=== PATIENT | female | born 1955 | race Caucasian/White ===

== ENCOUNTER 2016-12-27 17:20 | Observation (INO) | payer MEDICARE ==
[~2016-12-27 17:20] MED LIST: BAYER CHEWABLE81 MG PO; CYMBALTA30 MG PO; LOPRESSOR25 MG PO; PLAVIX75 MG PO; PRAVACHOL40 MG PO; TYLENOL325 MG PO
[2016-12-27 17:51] LABS: BASOPHILS 0.1 % (0-2); EOSINOPHILS 1.9 % (0-7); HEMATOCRIT 45.9 % (36.0-48.0); HEMOGLOBIN 15.3 g/dL (12-16); IMMATURE GRANULOCYTES 0.3 % (0-5); LYMPHOCYTES 42.3 % (15-50); MCH 29.9 pg (26.0-34.0); MCHC 33.3 g/dL (31.0-37.0); MCV 89.8 fL (80.0-100.0); MEAN PLATELET VOLUME 9.2 fL (7.4-10.4); MONOCYTES 6.7 % (2-11); NEUTROPHILS 48.7 % (40-80); PLATELET COUNT 247 10x3/uL (130-400); RBC 5.11 10x6/uL (4.00-5.40); RDW 15.4 % (11.5-14.5); WBC 7.2 10x3/uL (4.8-10.8)
[2016-12-27 17:59] LABS: APTT 31.6 SECONDS (22.8-39.4); INR 1.07 (0.85-1.17); PROTIME 13.8 SECONDS (11.6-15.0)
[2016-12-27 18:07] LABS: ALKALINE PHOSPHATASE 107 U/L (46-116); ALT (SGPT) 11 U/L (10-68); BILIRUBIN - TOTAL 0.16 mg/dL (0.2-1.3); CALC OSMOLALITY 279 mosm/kg (275-300); CALCIUM 9.2 mg/dL (8.5-10.1); CARBON DIOXIDE 22.8 mmol/L (21.0-32.0); CHLORIDE - SERUM 105 mmol/L (98-107); CREATININE - SERUM 0.7 mg/dL (0.6-1.3); GLUCOSE 92 mg/dL (74-106); POTASSIUM - SERUM 3.9 mmol/L (3.5-5.1); PROTEIN - SERUM 8.1 g/dL (6.4-8.2); SODIUM 140 mmol/L (136-145); UREA NITROGEN 16 mg/dL (7-18); eGFR NON AFRICAN AMERICAN > 90 mL/min (90-120)
--- NOTE | 2016-12-27 21:00 | NUR ---
RECEIVED PT TO FLOOR FROM ER VIA WHEELCHAIR. VITALS SIGNS STABLE. NEURO CHECKS WNL. NO DEFICITS. TELEMETRY NSR. CALLED REPORT TO DR. NIETO. REVIEWED HOME MEDS AND HISTORY. COMPLETE ASSESSMENT PER FLOW-SHEET. PT EATING SANDWICH. NO OTHER NEEDS. WILL CONTINUE TO MONITOR.
[2016-12-27] MEDS ORDERED: MILK OF MAGNESI30 ML PO (21:41)
[2016-12-27] MEDS ORDERED: BC POWDER (21:43)
[2016-12-27 23:48] VITALS: BP 119/61; BMI 19.8
[2016-12-28] VITALS: BP 88/52
[2016-12-28 04:00] VITALS: BP 123/65
[2016-12-28 04:38] LABS: BASOPHILS 0.3 % (0-2); EOSINOPHILS 3.5 % (0-7); HEMATOCRIT 38.7 % (36.0-48.0); HEMOGLOBIN 12.8 g/dL (12-16); IMMATURE GRANULOCYTES 0.3 % (0-5); LYMPHOCYTES 50.3 % (15-50); MCH 29.8 pg (26.0-34.0); MCHC 33.1 g/dL (31.0-37.0); MEAN PLATELET VOLUME 9.2 fL (7.4-10.4); MONOCYTES 7.8 % (2-11); NEUTROPHILS 37.8 % (40-80); PLATELET COUNT 215 10x3/uL (130-400); RDW 15.4 % (11.5-14.5)
[2016-12-28 04:48] LABS: INR 1.11 (0.85-1.17); PROTIME 14.2 SECONDS (11.6-15.0)
[2016-12-28 05:09] LABS: CALC OSMOLALITY 281 mosm/kg (275-300); CALCIUM 8.7 mg/dL (8.5-10.1); CHLORIDE - SERUM 104 mmol/L (98-107); CHOL - HDL RATIO 6.4 ratio (2.3-4.1); CHOLESTEROL, TOTAL 180 mg/dL (0-200); CREATININE - SERUM 0.7 mg/dL (0.6-1.3); GLUCOSE 90 mg/dL (74-106); HDL CHOLESTEROL 28 mg/dL (32-96); LDL CHOLESTEROL 118 mg/dL (0-100); LDL-HDL RATIO 4.2 ratio (1.5-3.5); POTASSIUM - SERUM 3.7 mmol/L (3.5-5.1); SODIUM 140 mmol/L (136-145); TRIGLYCERIDE 172 mg/dL (30-200); UREA NITROGEN 20 mg/dL (7-18); eGFR NON AFRICAN AMERICAN > 90 mL/min (90-120)
--- NOTE | 2016-12-28 07:43 | NUR ---
REPORT RECEIVED, ASSUMED CARE OF PT. RESTING IN BED, EASILY AROUSED. NO COMPLAINTS AT THIS TIME. R WRIST IV SALINE LOCKED, DRSG C/D/I. BED IN LOWEST POSITION, SIDE RAILS UP X 2, CALL LIGHT WITHIN REACH.
--- NOTE | 2016-12-28 09:08 | NUR ---
MRI CALLED TO PRE-MEDICATE PT. ATIVAN GIVEN ORDERED.
[2016-12-28 11:13] VITALS: BP 99/45
[2016-12-28 12:54] VITALS: BP 111/63
[2016-12-28 13:01] VITALS: BMI 19.7
[2016-12-28 16:34] VITALS: BP 126/64
--- NOTE | 2016-12-28 18:00 | NUR ---
REQUESTING TO SIGN AMA FORM. STATES, "I JUST WANT TO GO HOME." EXPLAINED TO RISKS AND BENEFITS TO PT AND IV TO RIGHT WRIST D/C WITH CATH TIP INTACT. NOTIFIED DR CHAPA AND DIRECTOR DECISION SUPPORT.
== END 2016-12-28 18:08 | disposition left against medical advice (07) ==
LOC: D.ER 17:20 → D.MS 17:54 → OBSVTIME 17:58 → D.MS 12-28 18:08
PROVIDERS: Emergency Medicine; ADMIT Family Medicine
DX: G45.9 Transient cerebral ischemic attack, unspecified (principal); E78.5 Hyperlipidemia, unspecified; I65.23 Occlusion and stenosis of bilateral carotid arteries; F17.200 Nicotine dependence, unspecified, uncomplicated

== ENCOUNTER 2017-06-23 20:16 | Emergency (ER) | payer MEDICARE ==
[~2017-06-23 20:16] MED LIST changes: +BC POWDER; +MILK OF MAGNESI30 ML PO
[2017-06-23 20:52] LABS: BASOPHILS 0.3 % (0-2); HEMATOCRIT 39.7 % (36.0-48.0); HEMOGLOBIN 13.3 g/dL (12-16); IMMATURE GRANULOCYTES 0.3 % (0-5); LYMPHOCYTES 32.7 % (15-50); MCH 29.6 pg (26.0-34.0); MCHC 33.5 g/dL (31.0-37.0); MCV 88.4 fL (80.0-100.0); MEAN PLATELET VOLUME 8.9 fL (7.4-10.4); MONOCYTES 7.5 % (2-11); NEUTROPHILS 57.2 % (40-80); PLATELET COUNT 255 10x3/uL (130-400); RBC 4.49 10x6/uL (4.00-5.40); RDW 16.2 % (11.5-14.5)
[2017-06-23 21:09] LABS: APTT 29.3 SECONDS (22.8-39.4); INR 1.07 (0.85-1.17); PROTIME 13.5 SECONDS (11.6-15.0)
[2017-06-23 21:10] LABS: D-DIMER-QUANTITATIVE 0.97 ug/mLFEU (0.20-0.54)
[2017-06-23 21:14] LABS: ALBUMIN 3.5 g/dL (3.4-5.0); ALKALINE PHOSPHATASE 77 U/L (46-116); ALT (SGPT) 6 U/L (10-68); BILIRUBIN - TOTAL 0.15 mg/dL (0.2-1.3); CALC OSMOLALITY 288 mosm/kg (275-300); CARBON DIOXIDE 22.9 mmol/L (21.0-32.0); CHLORIDE - SERUM 106 mmol/L (98-107); CREATININE - SERUM 0.6 mg/dL (0.6-1.3); GLUCOSE 95 mg/dL (74-106); POTASSIUM - SERUM 3.4 mmol/L (3.5-5.1); PROTEIN - SERUM 7.1 g/dL (6.4-8.2); SODIUM 144 mmol/L (136-145); UREA NITROGEN 18 mg/dL (7-18); eGFR NON AFRICAN AMERICAN > 90 mL/min (90-120)
[2017-06-23 21:27] LABS: AMYLASE - SERUM 26 U/L (25-115); CHOL - HDL RATIO 7.8 ratio (2.3-4.1); CHOLESTEROL, TOTAL 202 mg/dL (0-200); CKMB 0.2 U/L (0.0-3.6); CREATINE KINASE 28 UL (21-215); HDL CHOLESTEROL 26 mg/dL (32-96); LDL CHOLESTEROL 140 mg/dL (0-100); LDL-HDL RATIO 5.4 ratio (1.5-3.5); LIPASE 292 U/L (73-393); TRIGLYCERIDE 182 mg/dL (30-200)
[2017-06-23 21:28] LABS: TROPONIN-I < 0.017 ng/mL (0.000-0.060)
== END 2017-06-24 02:00 | disposition home or self-care (01) ==
LOC: D.ER 20:16
PROVIDERS: Family Medicine
DX: R07.9 Chest pain, unspecified (principal); I10 Essential (primary) hypertension

== ENCOUNTER 2017-08-08 16:00 | Emergency (ER) | payer MEDICARE ==
[2017-08-08 16:53] LABS: BASOPHILS 0.2 % (0-2); EOSINOPHILS 1.2 % (0-7); HEMATOCRIT 38.3 % (36.0-48.0); HEMOGLOBIN 12.7 g/dL (12-16); IMMATURE GRANULOCYTES 0.8 % (0-5); MCH 30.1 pg (26.0-34.0); MCHC 33.2 g/dL (31.0-37.0); MCV 90.8 fL (80.0-100.0); MEAN PLATELET VOLUME 8.7 fL (7.4-10.4); MONOCYTES 5.6 % (2-11); NEUTROPHILS 71.2 % (40-80); PLATELET COUNT 330 10x3/uL (130-400); RBC 4.22 10x6/uL (4.00-5.40); RDW 14.8 % (11.5-14.5); WBC 10.7 10x3/uL (4.8-10.8)
[2017-08-08 17:21] LABS: ALKALINE PHOSPHATASE 96 U/L (46-116); ALT (SGPT) 9 U/L (10-68); BILIRUBIN - TOTAL 0.17 mg/dL (0.2-1.3); CALC OSMOLALITY 278 mosm/kg (275-300); CALCIUM 9.5 mg/dL (8.5-10.1); CARBON DIOXIDE 24.3 mmol/L (21.0-32.0); CHLORIDE - SERUM 103 mmol/L (98-107); CREATININE - SERUM 0.6 mg/dL (0.6-1.3); GLUCOSE 86 mg/dL (74-106); PROTEIN - SERUM 7.6 g/dL (6.4-8.2); SODIUM 139 mmol/L (136-145); UREA NITROGEN 19 mg/dL (7-18); eGFR NON AFRICAN AMERICAN > 90 mL/min (90-120)
[2017-08-08 18:22] LABS: INR 1.12 (0.85-1.17)
[2017-08-08 18:35] LABS: CREATINE KINASE 31 UL (21-215); LIPASE 307 U/L (73-393); MAGNESIUM - SERUM 2.1 mg/dL (1.8-2.4); PRO BNP 149 pg/mL (0-125)
[2017-08-08 18:39] LABS: TROPONIN-I < 0.017 ng/mL (0.000-0.060)
[2017-08-08 20:32] LABS: APPEARANCE CLEAR (CLEAR); COLOR YELLOW (YELLOW)
[2017-08-08 20:33] LABS: BILIRUBIN NEGATIVE (NEGATIVE); GLUCOSE NEGATIVE (NEGATIVE); KETONE NEGATIVE (NEGATIVE); NITRITE NEGATIVE (NEGATIVE); PROTEIN NEGATIVE (NEGATIVE); UROBILINOGEN NORMAL (NORMAL)
[2017-08-08 20:34] LABS: EPITHELIAL CELLS OCC /hpf (0-5); RED CELLS - URINE 0-5 /hpf (0-5); WHITE CELLS - URINE 0-5 /hpf (0-5)
[2017-08-08 20:35] LABS: BACTERIA FEW /hpf (NONE SEEN)
== END 2017-08-08 21:13 | disposition home or self-care (01) ==
LOC: D.ER 16:00
PROVIDERS: Emergency Medicine; Nurse Practitioner Family
DX: J18.9 Pneumonia, unspecified organism (principal); R53.1 Weakness; K21.9 Gastro-esophageal reflux disease without esophagitis; I10 Essential (primary) hypertension; Z86.73 Personal history of transient ischemic attack (TIA), and cerebral infarction without residual deficits

== ENCOUNTER 2018-12-30 21:25 | Inpatient (IN) | payer MEDICARE ==
[~2018-12-30] VITALS: Ht 172.7 cm; Wt 59.4 kg
--- NOTE | ~2018-12-30 | HEMODYNAMI ---
PATIENT:DOMINGA CABAN MEDICAL RECORD: [id number] : 59 [facility] ADMISSION DATE: 12/30/18 Generatedon:12/31/201814:30 Patient name: DOMINGA CABAN Patient #: [id number] SSN: [id number] : 1955 Date of study: 12/31/2018 Page: Of Hemodynamic Procedure Report Patient Data Patient Demographics Procedure consent was obtained First Name: DOMINGA Gender: Female Last Name: ARSH : 1955 Middle Initial: NATALIE Age: 63 year(s) Patient #: [id number] Race: SSN: [id number] Additional ID: [id number] Contact details Address: [address] [place] [address] State: [place] City: [place] Zip code: [address] Past Medical History Allergies Allergen Reaction Date Comments Reported Other allergy 12/31/2018 see chart Admission Admission Data Admission Date: 12/30/2018 Admission Time: 22:58 Arrival Date: 12/31/2018 Arrival Time: 13:48 Admit Source: Other Insurance Payor: Medicare Room #: D.2115 [facility] #: [id number] Height (in.): 68.11 BSA: 1.72 (m2) Height (cm.): 173 BMI: 20.05 (kg/m2) Weight (lbs.): 132.28 Weight (kg.): 60 Lab Results Lab Result Date: 12/31/2018 Lab Result Time: 0:00 Biochemistry Name Units Result Min Max BUN mg/dl 13 --(--*-)-- 7 18 Creatinine mg/dl 0.5 -*(----)-- 0.6 1.3 eGFR ml/min 90 --(*---)-- 90 120 AM CBC Name Units Result Min Max Hemoglobin g/dl 13.1 -*(----)-- 13.5 17.5 Procedure Procedure Types Cath Procedure Diagnostic Procedure LHC LH w/Coronaries Sedation Charges Moderate Sedation up to 15 minutes Procedure Description Procedure Date Procedure Date: 12/31/2018 Procedure Start Time: 14:10 Procedure End Time: 14:28 Procedure Staff Name Function Stewart Zavala MD Performing Physician Bekah Garcia RT Monitor Irma Amaya RT Monitor Doris Bush RN Nurse Sandra Bean RT Scrub Indication Acute anterior wall ME Chest pain Procedure Data Cath Procedure Fluoroscopy Diagnostic fluoroscopy Total fluoroscopy Time: 2.5 time: 2.5 min min Diagnostic fluoroscopy Total fluoroscopy dose: 629 dose: 629 mGy mGy Contrast Material Contrast Material Type Amount (ml) Isovue 300 76 Entry Location Entry Primary Successful Side Size Upsize Upsize Entry Closure Succes sful Closure Location (Fr) 1 (Fr) 2 (Fr) Remarks Device Remarks Femoral Right 5 Fr Exoseal artery Estimated blood loss: 5 ml Diagnostic catheters Device Type Used For End Catheter Placement MULTIPACK JL 4.0 5Fr Left Coronary catheter Angiography MULTIPACK 3DRC 5Fr Right Coronary catheter Angiography MULTIPACK Pigtail 5 Fr LV Angiography catheter Procedure Complications No complications Procedure Medications Medication Administration Route Dosage 0.9% NaCl I.V. 100 ml/hr Oxygen etCO2 Nasal cannula 2 l/min Lidocaine 2% added to field 20 Heparin Flush Bag added to field 2 bags (1000units/500ml NS) Versed I.V. 2 mg Fentanyl I.V. 50 mcg Versed I.V. 2 mg Fentanyl I.V. 50 mcg Versed I.V. 2 mg Hemodynamics Rest BSA: 1.72 (m2) HGB: 13.1 (g/dl) O2 Consumption: Estimated: 171.1 (ml/min) O2 Con sumption indexed: Estimated:99.48 (ml/min/m) Heart Rate: 83 (bpm) Pressure Samples Time Site Value (mmHg) Purpose Heart Use Rate(bpm) 14:22 LV 154/6,9 Snapshot 79 14:22 AO 149/74(106) Pullback 27 Gradients Valve Time Site Site 2 Mean SEP/DFP Peak To Heart Use 1 (mmHg) (sec/min) Peak Rate (mmHg) (bpm) Aortic 14:22 LV AO 41 5 27 149/74(106) Calculations Valve P-P Mean Valve Index Valve Source Name Gradient Area Flow (cm2) Aortic 41 41 Snapshots Pre Cath Intra NCS Post Cath Vital Signs Time Heart Resp SPO2 etCO2 NIBP (mmHg) Rhythm Pain Sedation Rate (ipm) (%) (mmHg) Status Level (bpm) 13:55:50 79 18 98 27.7 143/78(114) NSR 0 (11) 10(A) , No pain 14:00:08 76 16 97 29.2 150/75(102) NSR 0 (11) 10(A) , No pain 14:04:20 71 16 98 33.8 118/68(98) NSR 0 (11) 10(A) , No pain 14:08:34 70 11 98 13.5 123/59(94) NSR 0 (11) 10(A) , No pain 14:12:50 67 13 98 37 120/63(99) NSR 0 (11) 10(A) , No pain 14:17:02 71 12 98 30 125/73(100) NSR 0 (11) 10(A) , No pain 14:21:20 78 17 97 16 125/63(93) NSR 0 (11) 10(A) , No pain 14:25:34 78 16 92 35.3 133/67(96) NSR 0 (11) 10(A) , No pain Medications Time Medication Route Dose Verified Delivered Reason Notes Eff ectiveness by by 13:56:04 0.9% NaCl I.V. 100 Stewart Doris used for ml/hr Sally Eleazar procedure MD BRUNO 13:56:10 Oxygen etCO2 2 Stewart Doris used for Nasal l/min [facility] procedure cannula MD BRUNO 13:56:16 Lidocaine 2% added 20ml Stewart William for local to vial [facility] anesthetic field MD CUENCA 13:56:21 Heparin Flush added 2 Stewart Stewart used for Bag to bags [facility] procedure (1000units/500ml field MD CUENCA NS) 14:06:06 Versed I.V. 2 mg Stewart Doris for Sally Eleazar sedation MD BRUNO 14:06:15 Fentanyl I.V. 50 Stewart Doris for mcg Sally Eleazar sedation MD BRUNO 14:11:40 Versed I.V. 2 mg Stewart Doris for Sally Eleazar sedation MD BRUNO 14:11:47 Fentanyl I.V. 50 Stewart Doris for mcg Sally Eleazar sedation MD BRUNO 14:17:53 Versed I.V. 2 mg Stewart Doris for SallyRuddy Bush sedation kettle operator Log Time Note 13:45:32 Informed consent obtained and on chart 13:46:22 Lab Result : eGFR AM 90 ml/min 13:46:22 Lab Result : Hemoglobin 13.1 g/dl 13:46:22 Lab Result : BUN 13 mg/dl 13:46:22 Lab Result : Creatinine 0.5 mg/dl 13:48:58 Doris Bush RN sent for patient. Start room use. 13:52:11 Diagnostic Cath Status : Elective 13:52:48 Indication : Acute anterior wall ME 13:52:57 Indication : Chest pain 13:53:45 ACC Patient presents with Stable Angina CCS Anginal Class 1--Ordinary physical activity does not cause angina, angina occurs with strenuos, rapid, or prolonged activity.. 13:53:53 Procedure Status Elective Heart Cath (OP). 13:54:01 Time tracking: Regular hours (M-F 7:00 - 5:00) 13:54:07 Plan of Care:Hemodynamics will remain stable., Cardiac rhythm will remain stable., Comfort level will be maintained., Respiratory function will remain adequate., Patient/ family verbilizes understanding of procedure., Procedure tolerated without complication., Recovers from procedure without complications.. 13:54:17 Patient received from Med II to CCL 1 Alert and oriented. Tansferred to table in Supine position. 13:54:42 Warm blankets applied, and roxy hugger turned on for patient comfort. 13:54:43 Correct patient and procedure confirmed by team. 13:54:46 ECG and BP/O2 sat monitors applied to patient. 13:54:47 Vital chart was started 13:54:55 Baseline sample Acquired. 13:55:11 Rhythm: sinus rhythm 13:55:27 1) 90+ Normal kidney functon but urine findings or structural abnormalities or genetic trait point to kidney disease. 13:55:55 Maximum allowable contrast dose (3.7 X eGFR X 0.75)249 ml. 13:56:04 0.9% NaCl 100 ml/hr I.V. was administered by Doris Bush RN; used for procedure; Verbal order read back and verified. 13:56:10 Oxygen 2 l/min etCO2 Nasal cannula was administered by Doris Bush RN; used for procedure; Verbal order read back and verified. 13:56:16 Lidocaine 2% 20ml vial added to field was administered by Stewart Zavala MD; for local anesthetic; Verbal order read back and verified. 13:56:21 Heparin Flush Bag (1000units/500ml NS) 2 bags added to field was administered by Stewart Zavala MD; used for procedure; Verbal order read back and verified. 14:02:09 Full Disclosure recording started 14:02:27 H&P Date Dictated: 12/31/2018 Within 30 days and on chart.. 14:02:29 Pre-procedure instructions explained to patient. 14:02:30 Pre-op teaching completed and patient verbalized understanding. 14:02:36 Family in patients room. 14:02:40 Patient NPO since Breakfast. 14:03:01 Patient allergic to Other allergysee chart 14:03:05 Is the patient allergic to Iodine/contrast media? No. 14:03:08 Was the patient premedicated? Yes 14:03:11 Is patient on blood thinner?No 14:03:30 Patient diabetic? No. 14:03:34 ----Pre-sedation anethsthesia assessment.---- 14:03:39 Previous problem with sedation/anesthesia? No ? 14:03:41 Snore? No 14:03:44 Sleep apnea? No 14:03:46 Deviated septum? No 14:03:48 Opens mouth fully? Yes 14:03:51 Sticks out tongue? Yes 14:04:05 Airway obstruction? No ? 14:04:12 Dentures? Yes in tight 14:04:22 Pre procedure: right dorsailis pedis pulse 2+ Normal; easily identifiable; not easily obliterated 14:04:29 Pre procedure: left dorsailis pedis pulse 2+ Normal; easily identifiable; not easily obliterated 14:04:37 Patient pain scale 0/10 ?. 14:04:46 IV patent on arrival in right hand with 0.9% NaCl at [facility]. 14:04:53 Lab results completed and on chart. 14:05:01 Right groin area was prepped with chlora-prep and draped in sterile fashion 14:05:03 Alarms reviewed by R. N. 14:05:04 Sharps counted by scrub and verified by R.N. 14:05:07 Physician arrived 14:05:09 --------ALL STOP TIME OUT------ 14:05:10 Final Timeout: patient, procedure, and site verified with staff and physician. All members of the team are in agreement. 14:05:14 Right groin site verified by team. 14:05:20 Fire Safety Assessment: A--An alcohol-based skin anteseptic being used preoperatively., C--Open oxygen or nitrous oxide is being used., D--An ESU, laser, or fiber-optic light is being used. 14:05:30 Physical assessment completed. ASA score P 2 - A patient with mild systemic disease as per Stewart Zavala MD. 14:05:37 Sedation plan: IV Moderate Sedation Medication:Versed, Fentanyl 14:05:53 Use device set Femoral Dx 14:05:54 ACIST Syringe (99939) opened to sterile field. 14:05:56 Bag Decanter (2002S) opened to sterile field. 14:05:57 Medline Cath Pack ([id number]) opened to sterile field. 14:05:59 ACIST Manifold (11740) opened to sterile field. 14:06:04 Tegaderm 4 x 4 (1626W) opened to sterile field. 14:06:06 Versed 2 mg I.V. was administered by Doris Bush RN; for sedation; Verbal order read back and verified. 14:06:08 SHEATH 5FR Pioneer (NHE135) opened to sterile field. 14:06:14 EMERALD Guide Wire (745-936) opened to sterile field. 14:06:15 Fentanyl 50 mcg I.V. was administered by Doris Bush RN; for sedation; Verbal order read back and verified. 14:06:18 ACIST Hand Control (50470) opened to sterile field. 14:06:22 DIAGNOSTIC Multipack 5Fr catheter set ([id number]) opened to sterile field. 14:09:11 Arrival Date: 12/31/2018 1:48:00 PM 14:09:31 Insurance Payor : Medicare 14:09:34 Admit Source: Other 14:09:48 Patient Height : 68.11 inches 14:09:55 Patient Weight : 132.28 lbs 14:10:33 Procedure started. 14:10:51 Local anesthetic to right femoral artery with Lidocaine 2% by Stewart Zavala MD.INITIAL ACCESS ONLY 14:11:40 Versed 2 mg I.V. was administered by Doris Bush RN; for sedation; Verbal order read back and verified. 14:11:47 Fentanyl 50 mcg I.V. was administered by Doris Bush RN; for sedation; Verbal order read back and verified. 14:12:12 A 5 Fr sheath was inserted into the Right Femoral artery 14:12:54 Zero performed for pressure channel P1 14:13:03 Zero performed for pressure channel P1 14:13:41 A MULTIPACK JL 4.0 5Fr catheter was advanced over the wire and used for Left Coronary Angiography. 14:14:24 LCA angiography performed. 14:15:11 Injector settings: Ml/sec: 3, Volume: 5, 14:17:53 Versed 2 mg I.V. was administered by Doris Bush RN; for sedation; Verbal order read back and verified. 14:18:20 A MULTIPACK 3DRC 5Fr catheter was advanced over the wire and used for Right Coronary Angiography. 14:19:36 RCA angiography performed. 14:20:02 Injector settings: Ml/sec: 3, Volume: 6, 14:20:08 ACCDominant side:Right 14:20:42 A MULTIPACK Pigtail 5 Fr catheter was advanced over the wire and used for LV Angiography. 14:22:11 LV hemodynamics recorded. 14:22:18 EF : 35 % 14:22:31 LV gram done using MIMS 14:22:36 Injector settings: Ml/sec: 5, Volume: 15, 14:22:45 EXOSEAL 5Fr (EX500) opened to sterile field. 14:22:53 Catheter removed. 14:23:29 Sheath removed intact; hemostasis achieved with Exoseal to the Right Femoral artery. 14:23:33 Procedure ended.(Physican Out) 14:24:03 Fluoroscopy time 02.50 minutes. 14:24:11 Fluoroscopy dose: 629 mGy 14:24:11 Flurop Dose total: 629 14:24:35 Contrast amount:Isovue 300 76ml. 14:24:39 Maximum allowable dose exceeded? No. 14:24:41 Sharps counted by scrub and verified by R.N. 14:24:46 Insertion/operative site no bleeding no hematoma. 14:24:52 Post-op/insertion site Right Femoral artery dressed using a 4 x 4 and Tegaderm. 14:25:58 Post right femoral artery:stable 14:26:01 Post Procedure Pulses reassessed and unchanged 14:26:20 Post-procedure physical assessment completed. ASA score P 2 - A patient with mild systemic disease as per Stewart Zavala MD. 14:26:28 Post procedure rhythm: unchanged. 14:26:32 Estimated blood loss: 5 ml 14:26:36 Post procedure instruction explained to patient.Patient verbalizes understanding. 14:26:38 Patient needs reinforcement of post procedure teaching. 14:26:57 Procedure type changed to Cath procedure, Diagnostic procedure, LHC, LHC w/Coronaries, Sedation Charges, Moderate Sedation up to 15 minutes 14:27:00 Procedure and supply charges have been captured, reviewed, submitted and are correct. 14:27:10 Procedure Complication : No complications 14:28:35 Vital chart was stopped 14:28:37 See physician's report for complete and final results. 14:28:40 Report given to [facility]. 14:28:46 Patient transfered to [facility] II with Bed. 14:28:50 Procedure ended. 14:28:50 Full Disclosure recording stopped 14:28:55 End room use (Document Last) Device Usage Item Name Manufacture Quantity Catalog Hospital Part Current Minimal L ot# / Number Charge Number Stock Stock Serial# Code ACIST Acist 1 90983 414788 748077 446182 20 Syringe Medical (34747) Systems Inc Bag Microtek 1 2001S 424714 88540 312969 5 Decanter Medical Inc. () Medline Medline 1 [id number] 81130 466440 5 Cath Pack ([id number]) ACIST Acist 1 25264 518236 618699 383839 5 Manifold Medical (39858) Systems Inc Tegaderm 4 3M 1 1626W 481753 782613 200991 5 x 4 (1626W) SHEATH 5FR Terumo 1 [id number] 835039 873642 735435 5 Pioneer ([id number]) EMERALD Cardinal 1 502-455 603772 505183 166676 5 Guide Wire [facility] (502-455) ACIST Hand Acist 1 41075 329046 839070 067331 5 Control Medical (22936) Systems Inc DIAGNOSTIC Cardinal 1 NA7320 371875 19252 351665 30 Multipack Health 5Fr catheter set (LW9433) MULTIPACK Cardinal 1 316525 5 JL 4.0 5Fr Health catheter MULTIPACK Cardinal 1 156771 5 3DRC 5Fr Health catheter MULTIPACK Cardinal 1 577312 5 Pigtail 5 Health Fr catheter EXOSEAL 5Fr Cardinal 1 EX500 209616 794748 512327 10 (EX500) Health Signature Audit [place] Stage Time Signature Unsigned Intra-Procedure 12/31/2018 Irma 2:29:22 PM Jose Luis RT(R) (CV) Intra-Procedure 12/31/2018 Doris Bush 2:30:04 PM RN Intra-Procedure 12/31/2018 Stewart Pastor 2:30:45 PM Ruddy CUENCA [id number] [place] [address]
[2018-12-30] MEDS ORDERED: NEXIUM20 MG PO (21:32)
[2018-12-30 21:48] VITALS: BP 129/85
[2018-12-30 21:51] LABS: BASOPHILS 0.2 % (0-2); EOSINOPHILS 2.3 % (0-7); HEMATOCRIT 40.9 % (36.0-48.0); HEMOGLOBIN 13.6 g/dL (12-16); IMMATURE GRANULOCYTES 0.1 % (0-5); LYMPHOCYTES 43.6 % (15-50); MCH 30.1 pg (26.0-34.0); MCHC 33.3 g/dL (31.0-37.0); MCV 90.5 fL (80.0-100.0); MEAN PLATELET VOLUME 8.5 fL (7.4-10.4); MONOCYTES 8.4 % (2-11); NEUTROPHILS 45.4 % (40-80); RBC 4.52 10x6/uL (4.00-5.40); RDW 16.4 % (11.5-14.5); WBC 8.4 10x3/uL (4.8-10.8)
[2018-12-30 21:52] LABS: PLATELET COUNT 261 10x3/uL (130-400)
[2018-12-30 21:58] LABS: APTT 30.9 SECONDS (22.8-39.4); INR 1.01 (0.85-1.17); PROTIME 12.8 SECONDS (11.6-15.0)
--- NOTE | 2018-12-30 22:10 | NUR ---
ANOTHER NITRO GIVEN D/T C/O CHEST PAIN 10/07. NOTIFIED LUNA NEWBY
[2018-12-30 22:34] LABS: ALBUMIN 3.5 g/dL (3.4-5.0); ALKALINE PHOSPHATASE 85 U/L (46-116); ALT (SGPT) 7 U/L (10-68); BILIRUBIN - TOTAL 0.13 mg/dL (0.2-1.3); CALC OSMOLALITY 283 mosm/kg (275-300); CALCIUM 9.5 mg/dL (8.5-10.1); CARBON DIOXIDE 22.7 mmol/L (21.0-32.0); CHLORIDE - SERUM 105 mmol/L (98-107); CREATININE - SERUM 0.6 mg/dL (0.6-1.3); GLUCOSE 91 mg/dL (74-106); POTASSIUM - SERUM 3.9 mmol/L (3.5-5.1); PROTEIN - SERUM 7.3 g/dL (6.4-8.2); SODIUM 142 mmol/L (136-145); UREA NITROGEN 15 mg/dL (7-18); eGFR NON AFRICAN AMERICAN > 90 mL/min (90-120)
[2018-12-30 22:35] LABS: CKMB 0.3 U/L (0.0-3.6); CREATINE KINASE 23 UL (21-215); MAGNESIUM - SERUM 1.7 mg/dL (1.8-2.4); TROPONIN-I < 0.017 ng/mL (0.000-0.060)
--- NOTE | 2018-12-30 22:43 | NUR ---
DR CHASE NOTIFIED AND REVIEWED PT's BEHAVIOR AND ASSESSMENT RESULTS. PT IS A LOW RISK PER DR CHASE. DR WATTS STATED TO GIVE RESOURCES TO PT AT TIME OF DISCHARGE. NO FURTHER ORDERS AT THIS TIME. RESOURCES REVIEWED WITH PT AND SHE VERBALIZED UNDERSTANDING.
--- NOTE | 2018-12-30 22:49 | NUR ---
pt stated her pain was much better after the iv pain medication. pt in room laughing with family at bedside.
[2018-12-30 23:26] LABS: APPEARANCE CLEAR (CLEAR); BILIRUBIN NEGATIVE (NEGATIVE); COLOR YELLOW (YELLOW); GLUCOSE NEGATIVE (NEGATIVE); KETONE NEGATIVE (NEGATIVE); NITRITE NEGATIVE (NEGATIVE); PROTEIN NEGATIVE (NEGATIVE); UROBILINOGEN NORMAL (NORMAL)
[2018-12-31 00:10] VITALS: BP 166/89; BMI 19.9
[2018-12-31] MEDS ORDERED: BENADRYL25 MG PO (00:10)
[2018-12-31 04:00] VITALS: BP 128/72
[2018-12-31 05:17] LABS: BASOPHILS 0.5 % (0-2); EOSINOPHILS 3.2 % (0-7); HEMATOCRIT 40.2 % (36.0-48.0); HEMOGLOBIN 13.1 g/dL (12-16); IMMATURE GRANULOCYTES 0.3 % (0-5); LYMPHOCYTES 48.9 % (15-50); MCH 29.8 pg (26.0-34.0); MCHC 32.6 g/dL (31.0-37.0); MCV 91.4 fL (80.0-100.0); MEAN PLATELET VOLUME 8.9 fL (7.4-10.4); NEUTROPHILS 38.1 % (40-80); PLATELET COUNT 253 10x3/uL (130-400); RDW 16.5 % (11.5-14.5); WBC 6.6 10x3/uL (4.8-10.8)
[2018-12-31 05:50] LABS: CALC OSMOLALITY 287 mosm/kg (275-300); CALCIUM 8.7 mg/dL (8.5-10.1); CARBON DIOXIDE 26.2 mmol/L (21.0-32.0); CHLORIDE - SERUM 109 mmol/L (98-107); CKMB 0.3 U/L (0.0-3.6); CREATINE KINASE 33 UL (21-215); CREATININE - SERUM 0.5 mg/dL (0.6-1.3); GLUCOSE 77 mg/dL (74-106); MAGNESIUM - SERUM 1.7 mg/dL (1.8-2.4); PHOSPHOROUS 3.9 mg/dL (2.5-4.9); POTASSIUM - SERUM 4.2 mmol/L (3.5-5.1); SODIUM 145 mmol/L (136-145); UREA NITROGEN 13 mg/dL (7-18); eGFR NON AFRICAN AMERICAN > 90 mL/min (90-120)
[2018-12-31 06:08] LABS: TROPONIN-I < 0.017 ng/mL (0.000-0.060)
--- NOTE | 2018-12-31 09:38 | NUR ---
CONSENTS SIGNED FOR [facility]. WILL CONT. PLAN OF CARE.
[2018-12-31 09:45] VITALS: BP 161/79
[2018-12-31 11:42] LABS: CKMB 0.3 U/L (0.0-3.6); CREATINE KINASE 61 UL (21-215); TROPONIN-I < 0.017 ng/mL (0.000-0.060)
[2018-12-31 13:22] VITALS: BP 126/62
--- NOTE | 2018-12-31 13:43 | NUR ---
PRE-OPS GIVEN. TO FIRE SUPPORT MAN BY BED.
[2018-12-31 13:46] VITALS: BMI 19.9
--- NOTE | 2018-12-31 14:48 | NUR ---
BACK FROM [facility]. VS WNL. RIGHT GROIN STABLE WITHOUT BLEEDING OR HEMATOMA NOTED. WILL MONITOR.
--- NOTE | 2018-12-31 16:19 | NUR ---
BED REST UP. GROIN STABLE. CAROTID DOPPLER DONE AT BS. WILL CONT. PLAN OF CARE.
[2018-12-31 17:32] LABS: CKMB 0.2 U/L (0.0-3.6); CREATINE KINASE 26 UL (21-215); TROPONIN-I < 0.017 ng/mL (0.000-0.060)
[2018-12-31 17:36] VITALS: BP 132/76
--- NOTE | 2018-12-31 19:00 | NUR ---
PT RESTING IN BED VISITING WITH HER LOVED ONES. SHE REPORTS THAT HER PAIN IS 2/10 BETWEEN HER SHOULDERS. REPORTS THAT IT IS TOLERABLE. WILL CONTINUE TO MONITOR. DENIES NEEDS. BED LOW. CALL LIGHT IN REACH. SHE IS IN SINUS RHYTHM WITH A HEART RATE OF 78 PER TELEMETRY.
[2018-12-31 20:00] VITALS: BP 138/75
[2019-01-01] VITALS: BP 115/56
[2019-01-01 04:00] VITALS: BP 161/79
--- NOTE | 2019-01-01 04:00 | NUR ---
WENT INTO PTS ROOM TO PREP HER FOR THE CABG. SHE STATES THAT SHE HAS DECIDED SHE DOES NOT WANT THE SURGERY DONE. SHE SAID SHE HAS NOT HAD ENOUGH TIME TO THINK ABOUT IT AND JUST DOES NOT FEEL THAT IT IS THE RIGHT THING TO DO. THE CHARGE NURSE AND I ENCOURAGED HER TO LET US DO THE FULL PREP IN CASE SHE CHANGES HER MIND. SHE REFUSED TO BE SHAVED OR SHAVE HERSELF. SHE ALLOWED US TO DO THE EKG.
[2019-01-01 05:11] LABS: BASOPHILS 0.2 % (0-2); EOSINOPHILS 2.9 % (0-7); HEMATOCRIT 39.7 % (36.0-48.0); HEMOGLOBIN 12.8 g/dL (12-16); IMMATURE GRANULOCYTES 0.3 % (0-5); LYMPHOCYTES 39.9 % (15-50); MCH 29.8 pg (26.0-34.0); MCHC 32.2 g/dL (31.0-37.0); MCV 92.3 fL (80.0-100.0); MEAN PLATELET VOLUME 9.1 fL (7.4-10.4); MONOCYTES 9.2 % (2-11); NEUTROPHILS 47.5 % (40-80); PLATELET COUNT 250 10x3/uL (130-400); RDW 16.5 % (11.5-14.5); WBC 6.2 10x3/uL (4.8-10.8)
[2019-01-01 05:32] LABS: CALC OSMOLALITY 279 mosm/kg (275-300); CALCIUM 8.9 mg/dL (8.5-10.1); CARBON DIOXIDE 25.1 mmol/L (21.0-32.0); CHLORIDE - SERUM 106 mmol/L (98-107); CREATININE - SERUM 0.6 mg/dL (0.6-1.3); GLUCOSE 91 mg/dL (74-106); MAGNESIUM - SERUM 1.9 mg/dL (1.8-2.4); PHOSPHOROUS 3.2 mg/dL (2.5-4.9); POTASSIUM - SERUM 4.3 mmol/L (3.5-5.1); SODIUM 140 mmol/L (136-145); UREA NITROGEN 14 mg/dL (7-18); eGFR NON AFRICAN AMERICAN > 90 mL/min (90-120)
--- NOTE | 2019-01-01 07:40 | NUR ---
STATES SHE DOES NOT WANT SURGERY. REMAINS NPO TILL SEEN BY SURGEON. CALL LIGHT IN REACH. WILL MONITOR NEEDS.
[2019-01-01 08:32] VITALS: BP 134/66
[2019-01-01 09:35] VITALS: Ht 172.7 cm; Wt 59.4 kg
[2019-01-01] MEDS ORDERED: NITROQUICK0.4 MG SL (13:20)
--- NOTE | 2019-01-01 14:00 | NUR ---
IV AND TELEMETRY DCD. DC PLANS GIVEN. UNDERSTANDING VOICED. ESCORTED TO CAR BY W/C.
--- NOTE | 2019-01-01 17:37 | MORECARE ---
CASE MANAGEMENT DISCHARGE SUMMARY PATIENT: DOMINGA CABAN UNIT: [id number] ADM DATE: 12/31/18 AGE: 63 : [birth year] SEX: F ROOM/BED: D.[facility] AUTHOR: EDI MUÑOZ PHYSICIAN: REFERRING PHYSICIAN: EFRA NOYOLA MD DATE OF SERVICE: 01/01/19 Discharge Plan Patient Name: DOMINGA CABAN Facility: [facility]:[place] : 1955 Planned Disposition: Home Anticipated Discharge Date: 01/01/19 Discharge Date: 01/01/2019 Expected LOS: 1 Initial Reviewer: [email or web address] Initial Review Date: 01/01/2019 Generated: 01/01/19 6:36 pm DCPIA - Discharge Planning Initial Assessment Updated by [email or web address]: Greg Encinas on 01/01/19 5:31 pm * Is the patient Alert and Oriented? Yes * How many steps to enter\exit or inside your home? NONE * PCP DR BRYAN * Pharmacy [facility] IN [place] * Preadmission Environment Home Alone * ADLs Independent * Equipment None * Other Equipment NO MEDICAL EQUIPMENT PROVIDER PRFERENCE * List name and contact numbers for known caregivers / representatives who currently or will assist patient after discharge: EDVIN AND YOANA MER[facility], FRIENDS, * Verbal permission to speak to the caregivers and representatives has been obtained from the patient. N/A * Community resources currently utilized None * Please name any agencies selected above. NONE * Additional services required to return to the preadmission environment? No * Can the patient safely return to the preadmission environment? Yes * Has this patient been hospitalized within the prior 30 days at any hospital? No Patient Name: DOMINGA CABAN Page [phone] at 1737 All edits/amendments must be made on the electronic document DICTATION DATE: 01/01/191735 OIL EXPELLER: TRACY 01/01/191735 RPT#: [id number] DC DATE:01/01/19 STATUS: DIS IN [facility] [address] [place] [address] END OF REPORT
--- NOTE | 2019-01-03 09:56 | OP ---
PATIENT NAME: DOMINGA CABAN MEDICAL RECORD: [id number] :[birth year] LOCATION:D.M2 D.2115 ADMISSION DATE:12/31/18 SURGEON: BOOM COLMENARES MD DATE OF OPERATION: 12/31/2018 PROCEDURE: Left heart catheterization, selective coronary angiography, right femoral artery approach. CATHETERS: A 5-Vietnamese sheath, 5/4 left and right Daniel, 5/4 pig. The procedure was well tolerated. The patient returned to lopez, sheath removed. ExoSeal device placed. FINDINGS: Left ventriculography in 30-degree MIMS view: Global LV hypo with EF reduced at 30% to 35%. CORONARY ANATOMY: LEFT MAIN: Left main tapers about 50% stenosis. LAD: LAD has a tight stenosis at the takeoff of the LAD in D1 of about 80%, both appear to be a good target distally. CIRCUMFLEX: The circumflex has one OM, has about 80% stenosis. RIGHT CORONARY ARTERY: Right coronary is totally occluded, fills via the [id number] collaterals. IMPRESSION: Decreased LV systolic function, multivessel coronary artery disease. CT surgery was consulted for possible coronary artery bypass grafting. TRANSINT:[id number] Voice Confirmation ID: [id number] DOCUMENT ID: [id number] BOOM COLMENARES MD at 0956 CC: [id number] DICTATION DATE: 12/31/18 143 POULTICE MACHINE OPERATOR: 12/31/18 1704 DIS IN 01/01/19 [facility] [address] [place] [address]
== END 2019-01-01 14:32 | disposition home or self-care (01) | DRG 287 ==
LOC: D.ER 21:25 → OBSVTIME 22:58 → D.M2 22:58 → D.SDCHOLD 12-31 11:15 → D.M2 12-31 11:15
PROVIDERS: Family Medicine; Internal Medicine Interventional Cardiology; ADMIT Family Medicine; ATTEND Family Medicine
PROC: B2151ZZ Fluoroscopy of Left Heart using Low Osmolar Contrast (ICD-10-PCS; 2018-12-31)
PROC: 4A023N7 Measurement of Cardiac Sampling and Pressure, Left Heart, Percutaneous Approach (ICD-10-PCS; 2018-12-31)
PROC: B2111ZZ Fluoroscopy of Multiple Coronary Arteries using Low Osmolar Contrast (ICD-10-PCS; principal; 2018-12-31 13:45)
DX: I25.119 Atherosclerotic heart disease of native coronary artery with unspecified angina pectoris (principal); I10 Essential (primary) hypertension; K21.9 Gastro-esophageal reflux disease without esophagitis; J44.9 Chronic obstructive pulmonary disease, unspecified; E83.42 Hypomagnesemia; F41.8 Other specified anxiety disorders; Z86.73 Personal history of transient ischemic attack (TIA), and cerebral infarction without residual deficits; Z72.0 Tobacco use

== ENCOUNTER 2019-01-09 22:06 | Inpatient (IN) | payer MEDICARE, MEDICAID ==
[~2019-01-09] VITALS: Ht 172.7 cm; Wt 61.4 kg
[~2019-01-09 22:06] MED LIST changes: +BENADRYL25 MG PO; +NEXIUM20 MG PO; +NITROQUICK0.4 MG SL
[2019-01-09] MEDS ORDERED: ZOCOR10 MG PO (22:26)
[2019-01-09] MEDS ORDERED: LISINOPRIL10 MG PO (22:26)
[2019-01-09] MEDS ORDERED: [UNRECOGNIZED DRUG - OTHER] PO (22:27)
[2019-01-09 22:49] LABS: BASOPHILS 0.2 % (0-2); HEMATOCRIT 40.7 % (36.0-48.0); HEMOGLOBIN 13.3 g/dL (12-16); IMMATURE GRANULOCYTES 0.3 % (0-5); LYMPHOCYTES 35.4 % (15-50); MCHC 32.7 g/dL (31.0-37.0); MCV 91.7 fL (80.0-100.0); MEAN PLATELET VOLUME 8.7 fL (7.4-10.4); MONOCYTES 8.8 % (2-11); NEUTROPHILS 52.3 % (40-80); RBC 4.44 10x6/uL (4.00-5.40); RDW 15.6 % (11.5-14.5); WBC 9.5 10x3/uL (4.8-10.8)
[2019-01-09 22:50] LABS: PLATELET COUNT 356 10x3/uL (130-400)
--- NOTE | 2019-01-09 22:58 | NUR ---
PT REFUSED IV MORPHINE, PT STATES SHE IS ALLERGIC.
[2019-01-09 23:01] LABS: APTT 30.5 SECONDS (22.8-39.4); PROTIME 12.7 SECONDS (11.6-15.0)
[2019-01-09 23:06] LABS: ALBUMIN 3.5 g/dL (3.4-5.0); ALKALINE PHOSPHATASE 84 U/L (46-116); BILIRUBIN - TOTAL 0.15 mg/dL (0.2-1.3); CALC OSMOLALITY 282 mosm/kg (275-300); CALCIUM 9.3 mg/dL (8.5-10.1); CARBON DIOXIDE 27.2 mmol/L (21.0-32.0); CHLORIDE - SERUM 105 mmol/L (98-107); CREATININE - SERUM 0.6 mg/dL (0.6-1.3); GLUCOSE 102 mg/dL (74-106); POTASSIUM - SERUM 3.9 mmol/L (3.5-5.1); PROTEIN - SERUM 7.1 g/dL (6.4-8.2); SODIUM 141 mmol/L (136-145); UREA NITROGEN 19 mg/dL (7-18); eGFR NON AFRICAN AMERICAN > 90 mL/min (90-120)
[2019-01-09 23:07] LABS: ALT (SGPT) 5 U/L (10-68)
[2019-01-09 23:12] LABS: CREATINE KINASE 28 UL (21-215)
[2019-01-09 23:15] LABS: TROPONIN-I < 0.017 ng/mL (0.000-0.060)
--- NOTE | 2019-01-09 23:19 | NUR ---
PT AMBULATED TO RESTROOM WITH A STEADY GAIT.
[2019-01-10] VITALS: BP 149/77
--- NOTE | 2019-01-10 00:11 | NUR ---
RN ATTEMPTED TO CALL REPORT, NURSE NOT AVAILABLE. CHARGE NURSE NOTIFIED.
--- NOTE | 2019-01-10 01:04 | NUR ---
RN ATTEMPTED TO CALL REPORT, NURSE NOT AVAILABLE. CHARGE NURSE NOTIFIED.
[2019-01-10 02:48] VITALS: BP 146/78; BMI 20.1
[2019-01-10 03:12] LABS: BASOPHILS 0.4 % (0-2); EOSINOPHILS 4.6 % (0-7); HEMATOCRIT 37.6 % (36.0-48.0); HEMOGLOBIN 12.1 g/dL (12-16); IMMATURE GRANULOCYTES 0.1 % (0-5); LYMPHOCYTES 43.4 % (15-50); MCH 29.7 pg (26.0-34.0); MCHC 32.2 g/dL (31.0-37.0); MCV 92.2 fL (80.0-100.0); MEAN PLATELET VOLUME 8.5 fL (7.4-10.4); NEUTROPHILS 43.5 % (40-80); PLATELET COUNT 318 10x3/uL (130-400); RBC 4.08 10x6/uL (4.00-5.40); RDW 15.6 % (11.5-14.5); WBC 7.5 10x3/uL (4.8-10.8)
[2019-01-10 03:35] LABS: ALKALINE PHOSPHATASE 73 U/L (46-116); BILIRUBIN - TOTAL 0.19 mg/dL (0.2-1.3); CALC OSMOLALITY 281 mosm/kg (275-300); CALCIUM 8.6 mg/dL (8.5-10.1); CARBON DIOXIDE 24.5 mmol/L (21.0-32.0); CHLORIDE - SERUM 107 mmol/L (98-107); CKMB 0.1 U/L (0.0-3.6); CREATINE KINASE 27 UL (21-215); CREATININE - SERUM 0.5 mg/dL (0.6-1.3); GLUCOSE 93 mg/dL (74-106); POTASSIUM - SERUM 3.7 mmol/L (3.5-5.1); PROTEIN - SERUM 6.3 g/dL (6.4-8.2); SODIUM 141 mmol/L (136-145); UREA NITROGEN 16 mg/dL (7-18); eGFR NON AFRICAN AMERICAN > 90 mL/min (90-120)
[2019-01-10 03:46] LABS: ALT (SGPT) 3 U/L (10-68); TROPONIN-I < 0.017 ng/mL (0.000-0.060)
[2019-01-10] MEDS ORDERED: XANAX0.25 MG PO (03:57)
[2019-01-10 04:00] VITALS: BP 128/68
--- NOTE | 2019-01-10 06:24 | NUR ---
PT CURRENTLY ASKING FOR PAIN MEDICATION. ADMISSION ORDERS PER ER ARE FOR FENTANYL IV WHICH IS NOT GIVEN ON THE FLOOR. CHILDREN'S NURSERY ASSISTANT IS GOING TO SPEAK WITH ER MD TO CANCEL ORDER. EXPLAINED TO PATIENT THAT ONCALL MD WILL HAVE TO BE CONTACTED FOR A NEW PAIN MEDICATION ORDER. HEPARIN DRIP INFUSING. NO CHANGE FROM ADMISSION ASSESSMENT. /89 PER TELEMETRY.
--- NOTE | 2019-01-10 06:33 | NUR ---
NEW PTT BACK RESULT 57.9. INCREASING RATE TO 9ML/HR. NEXT PTT 1230.
[2019-01-10 09:00] VITALS: BP 133/77
[2019-01-10 13:58] VITALS: BP 122/74
--- NOTE | 2019-01-10 14:11 | NUR ---
TELEMETRY SR. HEPRIN GTT INFUSING. CALL LIGHT IN REACH. WILL MONITOR NEEDS.
--- NOTE | 2019-01-10 17:25 | NUR ---
up ambulating hallway. gait steady.
[2019-01-10 18:02] LABS: APPEARANCE CLEAR (CLEAR); BILIRUBIN NEGATIVE (NEGATIVE); COLOR YELLOW (YELLOW); GLUCOSE NEGATIVE (NEGATIVE); KETONE NEGATIVE (NEGATIVE); NITRITE NEGATIVE (NEGATIVE); PROTEIN NEGATIVE (NEGATIVE); UROBILINOGEN NORMAL (NORMAL)
--- NOTE | 2019-01-10 19:46 | NUR ---
INITIAL ROUNDS AND ASSESSMENT COMPLETED. PT UP AND AMBULATING IN ROOM. HEPARIN DRIP INFUSING @ 10ML/HR. CURRENTLY LAB IN DRAWING SCHEDULED PTT. CPOC.
[2019-01-10 20:00] VITALS: BP 122/79
--- NOTE | 2019-01-10 21:13 | NUR ---
BEDTIME MEDS GIVEN + PT GIVEN REQUESTED ZOFRAN FOR NAUSEA AND DEMEROL FOR SIDE PAIN. PT NOW UP AND ABOUT IN HER ROOM, NO OTHER NEEDS VOICED.
[2019-01-11] VITALS: BP 99/51
[2019-01-11 04:00] VITALS: BP 108/55
--- NOTE | 2019-01-11 05:26 | NUR ---
C/O PAIN ALL OVER. MEDICATED WITH DEMEROL IV AND ZOFRAN IV FOR PAIN/NAUSEA. HEPARIN DRIP INFUSING. CPOC.
[2019-01-11 05:35] LABS: BASOPHILS 0.4 % (0-2); EOSINOPHILS 5.5 % (0-7); HEMATOCRIT 39.1 % (36.0-48.0); HEMOGLOBIN 12.3 g/dL (12-16); IMMATURE GRANULOCYTES 0.2 % (0-5); LYMPHOCYTES 40.3 % (15-50); MCH 29.4 pg (26.0-34.0); MCHC 31.5 g/dL (31.0-37.0); MCV 93.3 fL (80.0-100.0); MONOCYTES 9.1 % (2-11); NEUTROPHILS 44.5 % (40-80); PLATELET COUNT 325 10x3/uL (130-400); RBC 4.19 10x6/uL (4.00-5.40); RDW 15.6 % (11.5-14.5)
[2019-01-11 05:42] LABS: CALC OSMOLALITY 279 mosm/kg (275-300); CALCIUM 8.9 mg/dL (8.5-10.1); CHLORIDE - SERUM 107 mmol/L (98-107); CREATININE - SERUM 0.5 mg/dL (0.6-1.3); GLUCOSE 83 mg/dL (74-106); POTASSIUM - SERUM 3.9 mmol/L (3.5-5.1); SODIUM 141 mmol/L (136-145); UREA NITROGEN 13 mg/dL (7-18); eGFR NON AFRICAN AMERICAN > 90 mL/min (90-120)
[2019-01-11 05:43] LABS: WBC 5.5 10x3/uL (4.8-10.8)
--- NOTE | 2019-01-11 07:15 | NUR ---
RECEIVED PT IN BED EYES CLOSED RESP UNLABORED SKIN W/D COLOR PALE DENIES ANY PAIN OR DISCOMFORT GENERALIZED WEAKNESS NOTED WILL CONTINUE TO MONITOR
[2019-01-11 09:27] VITALS: BP 97/42
[2019-01-11 10:38] LABS: INR 1.03 (0.85-1.17)
[2019-01-11 10:56] LABS: ALBUMIN 3.3 g/dL (3.4-5.0); ALKALINE PHOSPHATASE 77 U/L (46-116); BILIRUBIN - TOTAL 0.14 mg/dL (0.2-1.3); CALC OSMOLALITY 279 mosm/kg (275-300); CALCIUM 9.1 mg/dL (8.5-10.1); CARBON DIOXIDE 23.8 mmol/L (21.0-32.0); CHLORIDE - SERUM 106 mmol/L (98-107); CHOLESTEROL, TOTAL 196 mg/dL (0-200); CREATININE - SERUM 0.6 mg/dL (0.6-1.3); GLUCOSE 82 mg/dL (74-106); PHOSPHOROUS 3.6 mg/dL (2.5-4.9); PROTEIN - SERUM 6.6 g/dL (6.4-8.2); SODIUM 141 mmol/L (136-145); T4 THYROXIN - FREE 0.79 ng/dL (0.76-1.46); THYROID STIMULATING HORMONE 4.02 uIU/mL (0.36-3.74); UREA NITROGEN 12 mg/dL (7-18); URIC ACID 2.4 mg/dL (2.6-7.2); eGFR NON AFRICAN AMERICAN > 90 mL/min (90-120)
[2019-01-11 10:58] LABS: ALT (SGPT) 8 U/L (10-68)
[2019-01-11 13:39] VITALS: BP 126/58
[2019-01-11 17:03] LABS: APPEARANCE CLEAR (CLEAR); COLOR YELLOW (YELLOW)
[2019-01-11 17:04] LABS: BILIRUBIN NEGATIVE (NEGATIVE); GLUCOSE NEGATIVE (NEGATIVE); KETONE NEGATIVE (NEGATIVE); NITRITE NEGATIVE (NEGATIVE); PROTEIN NEGATIVE (NEGATIVE); SPECIFIC GRAVITY 1.015 (1.005-1.020); UROBILINOGEN NORMAL (NORMAL)
--- NOTE | 2019-01-11 17:14 | MORECARE ---
CASE MANAGEMENT DISCHARGE SUMMARY PATIENT: DOMINGA CABAN UNIT: [id number] ADM DATE: 01/09/19 AGE: 63 : [birth year] SEX: F ROOM/BED: D.1041 AUTHOR: WANDA,DOC PHYSICIAN: REFERRING PHYSICIAN: HASEEB MEZA MD DATE OF SERVICE: 01/11/19 Discharge Plan Patient Name: DOMINGA CABAN Facility: [facility]:[place] : 1955 Planned Disposition: Home Health Service Anticipated Discharge Date: Discharge Date: Expected LOS: Initial Reviewer: [id number] Initial Review Date: 01/11/2019 Generated: 01/11/19 6:14 pm Comments DCP- Discharge Planning Updated by [email or web address]: Mckenna Fulton on 01/11/19 4:[address] Patient Name: DOMINGA CABAN Admission Status: ER Accout number: [id number] Admission Date: 01-09-2019 : 1955 Admission Diagnosis: Attending: HASEEB MEZA Current LOS: 2 Anticipated DC Date: Planned Disposition: Home Health Service Primary Insurance: [employer] ADV Discharge Planning Comments: CM MET WITH PATIENT AFTER OBTAINING VERBAL CONSENT. [facility] PLANS TO DISCHARGE TO HOME. DISCUSSED NEED FOR HH, REHAB OR EQUIPMENT. [facility] IS HAVING A CABG TOMORROW AND WOULD BE INTERESTED IN HH AFTER DC. [place] SIGNED, [facility] WANTS WHATEVER HH HER INSURANCE WILL ACCEPT. ALSO INTERESTED IN [facility]. CM WILL FOLLOW AND ASSIST NEEDED. Airborne Operations: Mckenna Fulton DCPIA - Discharge Planning Initial Assessment Updated by [email or web address]: Mckenna Fulton on 01/11/19 5:10 pm * Is the patient Alert and Oriented? Yes * PCP VERSER * [facility] [place] * Preadmission Environment Home Alone * ADLs Independent * Other Equipment NONE * List name and contact numbers for known caregivers / representatives who currently or will assist patient after discharge: MELISSA DONG, FRIEND, * Additional services required to return to the preadmission environment? Yes * Can the patient safely return to the preadmission environment? No * Has this patient been hospitalized within the prior 30 days at any hospital? Yes Coverage Notice Reviewer: [id number] Manjit Fulton Notice Issued Date-Time: 01/11/2019 17:13 Notice Type: Patient Choice Letter Notice Delivered To: Patient Relationship to Patient: Medical Education Specialist Name: Delivery Method: HAND - Hand Delivered Nadiya Days: Prior Verbal Notification: Recipient Understood Notice: Yes Recipient Signature: Yes Med Rec Note Co-signed by Attending: Coverage Notice Comment: HH ANY Patient Name: DOMINGA CABAN Page [phone] at 1714 All edits/amendments must be made on the electronic document DICTATION DATE: 01/11/191713 SENIOR SHAREPOINT ARCHITECT: TRACY 01/11/191713 RPT#: [id number] DC DATE: STATUS: ADM IN [facility] [address] [place] [address] END OF REPORT
[2019-01-11 17:49] VITALS: BP 117/70
--- NOTE | 2019-01-11 19:25 | NUR ---
CALLED AND SPOKE WITH DR. ASHLEY REGARDING WHEN TO STOP HEPARIN DRIP. ORDERS GIVEN TO STOP HEPARIN AT 0700.
--- NOTE | 2019-01-11 19:30 | NUR ---
BEDSIDE REPORT RECEIVED. PATIENT IS ALERT AND ORIENTED, RESTING COMFORTABLY IN BED. RESPIRATIONS ARE EVEN AND UNLABORED. NO S/S OF DISTRESS. PATIENT REQUESTING PAIN MEDICATION. WILL GIVE WHEN ALLOWED ACCORDING TO EMAR. CALL LIGHT WITHIN REACH WILL CPOC.
[2019-01-11 20:00] VITALS: BP 133/71
--- NOTE | 2019-01-11 21:04 | NUR ---
PATIENT ASKED FOR PAIN MEDICATION APROX 1899. WENT IN TO ASSESS PATIENT PATIENT. MEPERIDINE NOT AVAILABLE UNTIL 2108. EXPLAINED THE SITUATION TO THE PATIENT. AROUND 2009 GAVE PATIENT HS MEDICATION. TOLD THE PATIENT THAT I WOULD BE BACK IN AROUND 2099 TO GIVE HER THE PAIN MEDICATION. PATIENT STATED "DON'T BOTHER I PROBABLY WILL NOT BE THERE. AT 2054 WENT TO PATIENT ROOM TO GIVE HER THE MEPERIDINE PATIENT REFUSED THE MEDICATION. CALLED FIELD REPRESENTATIVES DIRECTOR ISAAC TO EXPLAIN SITUATION. FIELD REPRESENTATIVES DIRECTOR REQUESTED THAT I HAVE ANOTHER NURSE TAKE OVER CARE OF THIS PATIENT.
--- NOTE | 2019-01-11 21:25 | NUR ---
ASSUMED PT CARE AT THIS TIME. PT HAVE CONTINUOSLY REFUSED HER DEMEROL. STATES SHE IS HURTING BUT DOES NOT WANT IT. PT DENIES ANY NEEDS AT THIS TIME. WILL CTM.
--- NOTE | 2019-01-11 21:25 | NUR ---
ASSUMED PT CARE AT THIS TIME.ASKED PT IF SHE WANTED HER DEMEROL AT THIS TIME. PT REFUSED. STATES SHE IS HURTING BUT REFUSED HER PAIN MED. PT STATES SHE WANTED TO BE LEFT ALONE AND WANT ME OUT OF HER ROOM.
--- NOTE | 2019-01-11 22:42 | NUR ---
CANDY STARCH MOLD PRINTER ISAAC IN PT'S ROOM, SHE ASKED IF PT WOULD LIKE TO TAKE HER DEMEROL NOW, BUT PT REFUSED.
[2019-01-12] VITALS (26 sets, daily range): BP systolic 93–185; BP diastolic 46–91
[2019-01-12 05:36] LABS: CALC OSMOLALITY 281 mosm/kg (275-300); CALCIUM 8.9 mg/dL (8.5-10.1); CARBON DIOXIDE 29.5 mmol/L (21.0-32.0); CHLORIDE - SERUM 106 mmol/L (98-107); CREATININE - SERUM 0.6 mg/dL (0.6-1.3); GLUCOSE 90 mg/dL (74-106); POTASSIUM - SERUM 3.9 mmol/L (3.5-5.1); SODIUM 141 mmol/L (136-145); UREA NITROGEN 15 mg/dL (7-18); eGFR NON AFRICAN AMERICAN > 90 mL/min (90-120)
[2019-01-12 05:42] LABS: BASOPHILS 0.3 % (0-2); HEMATOCRIT 36.9 % (36.0-48.0); HEMOGLOBIN 11.5 g/dL (12-16); IMMATURE GRANULOCYTES 0.3 % (0-5); LYMPHOCYTES 34.5 % (15-50); MCHC 31.2 g/dL (31.0-37.0); MCV 93.2 fL (80.0-100.0); MEAN PLATELET VOLUME 8.9 fL (7.4-10.4); MONOCYTES 9.5 % (2-11); NEUTROPHILS 50.4 % (40-80); PLATELET COUNT 286 10x3/uL (130-400); RBC 3.96 10x6/uL (4.00-5.40); RDW 15.5 % (11.5-14.5); WBC 5.8 10x3/uL (4.8-10.8)
--- NOTE | 2019-01-12 07:15 | NUR ---
RESTING QUIETLY C/O PAIN GENERALIZED 10/07 REQUEST PAIN MED RESP UNLABORED SKIN W/D WILL CONTINUE TO MONITOR
--- NOTE | 2019-01-12 18:30 | NUR ---
NEEDLE COUNT CONFIRMED VIA X-RAY. COUNT CORRECT. DION INFORMED. NO FURTHER ACTION NEEDED.
--- NOTE | 2019-01-12 20:00 | NUR ---
PT RECEIVED FROM SURGERY IN BED, AT 1930, PT CONNECTED TO VENT AND MONITOR. CRITICORE CRANDALL PATENT WITH CLEAR YELLOW URINE NOTED. CHEST TUBES X2 TO COLLECTION CONTAINER WATER SEALED AND CONNECTED TO SUCTION 20CM H2O, NO LEAKS NOTED. PT WITH RIGHT IJ. RECEIVING PLASMALYTE, NITRO, AMIODARONE. PT SEDATED, BEGINNING TO SHAKE HEAD. WILL CONTINUE TO OBSERVE.
[2019-01-12 20:10] LABS: BASOPHILS 0 % (0-2); EOSINOPHILS 1.1 % (0-7); HEMOGLOBIN 9.2 g/dL (12-16); IMMATURE GRANULOCYTES 0.3 % (0-5); LYMPHOCYTES 17.8 % (15-50); MCH 29.4 pg (26.0-34.0); MCHC 31.8 g/dL (31.0-37.0); MCV 92.3 fL (80.0-100.0); MEAN PLATELET VOLUME 8.3 fL (7.4-10.4); MONOCYTES 5.9 % (2-11); NEUTROPHILS 74.9 % (40-80); RDW 15.3 % (11.5-14.5); WBC 6.4 10x3/uL (4.8-10.8)
[2019-01-12 20:11] LABS: INR 1.2 (0.85-1.17); PROTIME 14.7 SECONDS (11.6-15.0)
[2019-01-12 20:11] LABS: HEMATOCRIT 28.9 % (36.0-48.0); PLATELET COUNT 185 10x3/uL (130-400); RBC 3.13 10x6/uL (4.00-5.40)
--- NOTE | 2019-01-12 20:30 | NUR ---
SISTER AND FRIEND AT BEDSIDE, UPDATE GIVEN. PHONE NUMBERS UPDATED. LEFT FOR NIGHT.
--- NOTE | 2019-01-12 20:45 | NUR ---
DR. ASHLEY CALLED AND GIVEN REPORT OF PT/INR AND PLATLET COUNT. NO ORDERS RECEIVED. WILL CONTINUE TO OBSERVE.
--- NOTE | 2019-01-12 21:20 | NUR ---
CRITICORE CONTAINER NEAR FULL. EMPTIED.
--- NOTE | 2019-01-12 22:40 | NUR ---
PT BEGINNING TO ROUSE AND WANTING TUBE PULLED OUT, EXPLAINED PROCESS AND PT NODDED HEAD OK.
[2019-01-13] VITALS (78 sets, daily range): BP systolic 103–160; BP diastolic 44–75
--- NOTE | 2019-01-13 02:30 | NUR ---
DR ASHLEY CALLED AT 0215 REPORTED ABG'S AND WEANING RESULTS, ORDERS TO EXTUBATE RECEIVED. RESPIRATORY AT BEDSIDE AND EXTUBATION OCCURRED AT 0220, PT TOLERATED WELL. PLACED ON N/C 6LPM.
[2019-01-13 05:09] LABS: BASOPHILS 0.1 % (0-2); EOSINOPHILS 0 % (0-7); HEMATOCRIT 29.9 % (36.0-48.0); HEMOGLOBIN 9.4 g/dL (12-16); IMMATURE GRANULOCYTES 0.3 % (0-5); LYMPHOCYTES 6.3 % (15-50); MCH 29.3 pg (26.0-34.0); MCHC 31.4 g/dL (31.0-37.0); MCV 93.1 fL (80.0-100.0); MEAN PLATELET VOLUME 9.1 fL (7.4-10.4); MONOCYTES 6.9 % (2-11); NEUTROPHILS 86.4 % (40-80); PLATELET COUNT 217 10x3/uL (130-400); RBC 3.21 10x6/uL (4.00-5.40); RDW 15.5 % (11.5-14.5)
[2019-01-13 05:13] LABS: WBC 9.8 10x3/uL (4.8-10.8)
[2019-01-13 05:28] LABS: ALKALINE PHOSPHATASE 60 U/L (46-116); ALT (SGPT) 12 U/L (10-68); BILIRUBIN - TOTAL 0.21 mg/dL (0.2-1.3); CALCIUM 7.8 mg/dL (8.5-10.1); CARBON DIOXIDE 28.9 mmol/L (21.0-32.0); CHLORIDE - SERUM 109 mmol/L (98-107); CREATININE - SERUM 0.5 mg/dL (0.6-1.3); POTASSIUM - SERUM 3.9 mmol/L (3.5-5.1); PROTEIN - SERUM 5.9 g/dL (6.4-8.2); SODIUM 143 mmol/L (136-145); eGFR NON AFRICAN AMERICAN > 90 mL/min (90-120)
[2019-01-13 05:31] LABS: CALC OSMOLALITY 285 mosm/kg (275-300); GLUCOSE 160 mg/dL (74-106); UREA NITROGEN 8 mg/dL (7-18)
--- NOTE | 2019-01-13 07:00 | NUR ---
AWAKES EASILY TO VERBAL STIMULI SKIN WARM AND DRY. CHEST TUBES INTACT TO 20 CM SUCTION BLOODY DRAINAGE. TRACY INTAKE BULB COMPRESSED BLODDY DRAINAGE. KEL RIGHT RADIAL GOOD WAVE FORM. RIJ INFUSING WITH NTG GTT AT 10 MCG/MIN, CORDARONE AT 0.5 MG/MIN. INSULIN GTT RESTARTED AT 1 UNIT HOUR. PLASMALYTE AT 100 ML HOUR. CRANDALL CATH PATENT. HEAD OF BED ELEVATED 30 DEGREES. OXYGEN AT 6 LITERS PER HIGH FLOW OXYGEN. RESTING COMFORTABLY.MONITOR SR.
--- NOTE | 2019-01-13 07:30 | NUR ---
UP IN CHAIR AT BEDSIDE WITH ASSISTANCES OF TWO NURSES. PATIENT TOLERATED FAIR. DILAUDID PAIN MEDS GIVEN TO ASSIST PATIENT IN GETTING COMFORTABLE IN CHAIR. CHEST TUBE INTACT. MONITOR SR.
--- NOTE | 2019-01-13 08:00 | NUR ---
PATIENT RESTING MORE COMFORTABLE. INCENTIVE SPIROMETRY TO 500 ML HOUR. NTG GTT AT 5 MCG/MIN. INSULIN MAINTAINED AT 1 UNIT HOUR FOR ACCUCHECK OF 162. TAKING PO ICE CHIPS. DENIES WANTING ANY PO FLUIDS AT THIS TIME. TRACY COMPRESSED.
--- NOTE | 2019-01-13 08:59 | NUR ---
WEANING OXYGEN DOWN TO 4 LITERS. TAKING FAITH OSPINA.
--- NOTE | 2019-01-13 10:00 | NUR ---
PATIENT UP IN CHAIR REPOSITIONED FOR COMFORT STATES SHE HAS CHRONIC BACK PAIN.
--- NOTE | 2019-01-13 12:30 | NUR ---
RETURNED TO BED PER DR. ASHLEY INSTRUCTIONS. PATIENT STANDING FAIR, SOME UNSTEADY GAIT.
--- NOTE | 2019-01-13 13:00 | NUR ---
KEL DC'D PRESSURE HELD 10 MIN. NO BLEEDING OR BRUISING AT SITE. PATIENT TOLERATED WELL.
--- NOTE | 2019-01-13 14:15 | NUR ---
PRICILA HERE. CHEST TUBES DISCONTINUED. PATIENT TOLERATED WELL NO DISTRESS.
--- NOTE | 2019-01-13 15:30 | NUR ---
NAPPING AT INTERVALS. ENCOURAGE TO USE IS.
--- NOTE | 2019-01-13 16:25 | OP ---
PATIENT NAME: DOMINGA CABAN MEDICAL RECORD: [id number] :[birth year] LOCATION:D.CVI D.CV04 ADMISSION DATE:01/09/19 SURGEON: TRE ASHLEY MD DATE OF OPERATION: 01/12/2019 SURGEON: Tre Ashley MD WATER PROJECT ENGINEER: DALLAS Lou MD and Dread Jo. OPERATION PERFORMED: 1. Coronary artery bypass graft times 3 (left internal mammary artery to distal LAD, reverse saphenous vein graft from aorta to first diagonal, aorta to right coronary artery). 2. Endoscopic saphenous vein harvest. PREOPERATIVE DIAGNOSES: Coronary artery disease with history of stroke and chronic obstructive pulmonary disease. POSTOPERATIVE DIAGNOSES: Coronary artery disease with history of stroke and chronic obstructive pulmonary disease. ANESTHESIA: General endotracheal anesthesia. ESTIMATED BLOOD LOSS: Total cardiopulmonary bypass with Cell Saver retransfusion, one platelet, one FFP. SPECIMENS: None. CONDITION: Stable. DISPOSITION: CV ICU. COMPLICATIONS: None. FINDINGS: 1. Good quality greater saphenous vein harvested endoscopically, right lower extremity. 2. Severe bilateral lung hyperexpansion and hyperpigmentation. 3. Good quality left internal mammary artery. 4. Osteopenia. 5. Ascending aortic plaque in the distal anterior ascending aorta. 6. LAD, had a stent in the mid, distal vessel and beyond it was a 1.0 mm severely diseased vessel, there was good Doppler flow after anastomosis and after reversal of heparin. 7. First diagonal was a 1.25 mm severely diseased vessel. 8. The obtuse marginal was diseased throughout with no soft spot for anastomosis, attempt was made to open the soft plaque in the more proximal portion of the vessel, but there was no discrete lumen and it was oversewn. 9. The posterior descending artery likewise was completely diseased throughout. The right coronary artery had one soft spot with an anastomosis and plaque, 1.0 mm probe would not even pass distally after this anastomosis and I would not expect long-term patency. OPERATIVE INDICATION: Coronary artery disease. OPERATIVE REPORT [id number] DOMINGA CABAN OPERATIVE PROCEDURE IN DETAIL: The patient was brought to the operative suite. General anesthesia was obtained. The patient was prepped and draped. Greater saphenous vein harvested endoscopically right lower extremity. Side branch divided with electrocautery. Vessels ligated proximally and distally and removed. Side branches were tied and then sites were oversewn. Dr. Luo performed this portion of the surgery and saved about 30 minutes of general endotracheal anesthesia time. Later leg was closed in 2 layers. Median sternotomy incision was made. The subcutaneous tissue was divided with electrocautery. The sternum was divided with a saw. Lungs were touching in the midline. The left hemisternum was elevated. Left pleural cavity was entered and the right pleural cavity had been entered on opening the chest. Left internal mammary vein was taken as a pedicle graft. Sternal retractor was placed. Pericardium was opened. Heparin was given. Aorta was cannulated low in the anterior ascending aorta to avoid the plaque. Dual stage venous cannula was inserted. The internal mammary was clipped distally and made ready for anastomosis. After activating clotting time appropriately elevated, the patient was placed on cardiopulmonary bypass. Sites for distal anastomosis was selected. The patient's temperature drifted downwardly. Crossclamp was placed. Cardioplegia was given antegrade and this repeated at 15 to 20 minute intervals including down the completed vein grafts. Distal anastomoses were performed in standard technique. Proximal anastomosis with single cross-clamp technique. Flow restored. Proximal anastomosis tied down. Vein graft de-aired. Proximal and distal anastomotic sites inspected for bleeding. Single suture ensured in the distal and proximal sites for bleeding. The patient resumed a spontaneous rhythm after 2 defibrillations and additional lidocaine and when fully rewarmed, weaned from cardiopulmonary bypass, and was stable. The patient was decannulated. The cannula sites were oversewn. Protamine was given. Thorough irrigation was undertaken. Hemostasis was observed. Grafts lay appropriately. A drain was placed in the mediastinum and both pleural cavities. Ventricular pacing wires were placed. The pericardial fat was loosely reapproximated. Both chests were evacuated and irrigated. The internal mammary harvest site was inspected for bleeding. Sternum was closed with wires and a weave technique. The fascia was closed. Subcutaneous tissue was closed. Skin was closed. Dermabond was placed. The needle and sponge counts reported as correct. The patient was taken to ICU in stable condition. TRANSINT:[id number] Voice Confirmation ID: [id number] DOCUMENT ID: [id number] TRE ASHLEY MD at 1625 CC: BOOM COLMENARES MD and JERRICA BRYAN [id number] DICTATION DATE: 01/12/191838 SENIOR SOFTWARE PROJECT MANAGER: 10/16/19 0014 ADM IN [facility] [address] [place] [id number]
--- NOTE | 2019-01-13 17:30 | NUR ---
FAMILY HERE UP DATE GIVEN. REPOSITIONED ON RIGHT SIDE. INSULIN GTT AT 1 UNIT HOUR. PLASMALYTE AT 10 ML HOUR. NO OTHER GTTS. TRACY COMPRESSED. CRANDALL CATH PATENT. RESTING COMFORTABLY.
--- NOTE | 2019-01-13 18:52 | NUR ---
AMBULATED TO BATHROOM PASSING GAS. NO BM. AMBULATED BACK TO ROOM. TOLERATED WELL. GETTING BACK IN BED UNCOMFORTABLE TO PATIENT. INSULIN GTT OFF. RIGHT IJ CENTRAL LINE SALINE LOCKED. HEAD OF BED ELEVATED 30 DEGREES.
--- NOTE | 2019-01-13 19:12 | NUR ---
TRIED TO GIVE PATIENT UPD AND PT REFUSED. PT SLAPPED TX AWAY FROM ME AND SAID SHE WASNT DOING THAT. I EXPLAINED ALL OF THE REASONS TO WHY SHE SHOULD DO THE UPD TX AND PT STATED THAT SHE DIDNT CARE AND WASNT DOING ANYTHING THAT SHE NEED TO DO. I ASKED HER WHY AND SHE STATED THAT SHE DIDNT FEEL LIKE IT SO SHE WASNT GOING TO DO IT.
--- NOTE | 2019-01-13 19:30 | NUR ---
SHIFT ASSESSMENT COMPLETE. EXPLAINED TO PATIENT THE IMPORTANCE OF COMPLETE BREATHING TX AND USING INCENTIVE SPIROMETRY ALONG WITH DEEP BREATHING/COUGHING.
--- NOTE | 2019-01-13 21:24 | NUR ---
PATIENT C/O OF PAIN APPROX 10 ON PAIN SCALE OF 10 PAIM MED GIVEN PER MD ORDER. PATIENT AGREES TO NEXT RESPIRATORY TX.
--- NOTE | 2019-01-13 23:00 | NUR ---
PATIENT SLEEPING WITH NO DISTRESS NOTED, AROUSES EASILY TO VERBAL STIMULI. CALL LIGHT WITHIN REACH, BED IN LOW POSITION. REASSESSMENT COMPLETE
[2019-01-14] VITALS (27 sets, daily range): BP systolic 92–134; BP diastolic 41–67; BMI 19.9
--- NOTE | 2019-01-14 02:15 | NUR ---
UPON ENTERING PATIENT ROOM PATIENT IS SITTING WITH HOB ELEVATED WITH ARMS CROSSED. ASK PATIENT IF SHE NEEDED ANYTHING OR WAS IN PAIN. PATIENT STATED SHE WAS IN PAIN. PATIENT ASK IF SHE NEEDED PAIN MED, PATIENT REFUSED PAIN MED AT THIS TIME. I EXPLAINED TO PATIENT THAT SHE MUST REQUEST THE PAIN MEDICATION THAT I COULDNT JUST BRING IT TO HER.
--- NOTE | 2019-01-14 03:15 | NUR ---
Reassessment complete. Upon entering patient room patient had hob elevated sitting with arms crossed. Ask patient if she was in pain or needed anything and she states yes she is in pain but doesn't want anything. Patient also states she wants to go over to [facility]. Tried to explain to patient that she was at [facility] but she was not accepting of the idea. Patient still refuses pain med at this time.
--- NOTE | 2019-01-14 05:25 | NUR ---
SUBSTERNAL DRESSING CHANGE COMPLETE. PATIENT WANTED TO GET UP TO CHAIR. ENCOURAGED TO COUGH, DEEP BREATH, AND WORK ON INCENTIVE SPIROMETRY.
--- NOTE | 2019-01-14 05:43 | NUR ---
PATIENT TO XRAY WITH RADIOLOGY STAFF VIA W/C IN STABLE CONDITION.
[2019-01-14 06:21] LABS: BASOPHILS 0.3 % (0-2); EOSINOPHILS 1.1 % (0-7); HEMATOCRIT 27.5 % (36.0-48.0); HEMOGLOBIN 8.5 g/dL (12-16); IMMATURE GRANULOCYTES 0.3 % (0-5); LYMPHOCYTES 17.1 % (15-50); MCH 29.3 pg (26.0-34.0); MCHC 30.9 g/dL (31.0-37.0); MCV 94.8 fL (80.0-100.0); MEAN PLATELET VOLUME 9.4 fL (7.4-10.4); MONOCYTES 12.8 % (2-11); NEUTROPHILS 68.4 % (40-80); PLATELET COUNT 209 10x3/uL (130-400); RDW 15.4 % (11.5-14.5); WBC 7.6 10x3/uL (4.8-10.8)
[2019-01-14 06:41] LABS: ALBUMIN 2.7 g/dL (3.4-5.0); ALKALINE PHOSPHATASE 55 U/L (46-116); ALT (SGPT) 14 U/L (10-68); BILIRUBIN - TOTAL 0.65 mg/dL (0.2-1.3); CALC OSMOLALITY 278 mosm/kg (275-300); CARBON DIOXIDE 27.9 mmol/L (21.0-32.0); CHLORIDE - SERUM 105 mmol/L (98-107); CREATININE - SERUM 0.5 mg/dL (0.6-1.3); GLUCOSE 130 mg/dL (74-106); POTASSIUM - SERUM 3.8 mmol/L (3.5-5.1); PROTEIN - SERUM 5.8 g/dL (6.4-8.2); SODIUM 140 mmol/L (136-145); UREA NITROGEN 7 mg/dL (7-18); eGFR NON AFRICAN AMERICAN > 90 mL/min (90-120)
--- NOTE | 2019-01-14 07:00 | NUR ---
REPORT RECEIVED FROM THE OFF GOING RN. SEE ASSESSMENT IN THE PTS FLOW SHEET. PT SITTING OOB IN HER BEDSIDE CHAIR. VSS. NSR BOSTON THE MONITOR. 2L VIA NC. BREATHING SHALLOW. INSTRUCTED THE PT TO USE HER IS 10X'S/H. PT PULLS ABOUT 500 ON HER IS. WEAK NON PRODUCTIVE COUGH NOTED. RIGHT IJ CVL NOTED. MIDSTERNAL AND SUBSTERNAL DRESSING C/D/I. LEFT TRACY DRAIN NOTED COMPRESSED WITH SEROUSANG DRAINAG. FC NOTED WITH CLEAR, YELLOW URINE. RLE HARVEST SITE WELL APPROXIMATED AND TITLE CURATIVE SPECIALIST. CALL LIGHT IN REACH. WILL CONT POC.
--- NOTE | 2019-01-14 08:34 | NUR ---
DR ASHLEY AT PTS BEDSIDE. OK TO HOLD LOPRESSOR FOR HYPOTENSION IF NEED BE.
--- NOTE | 2019-01-14 09:30 | NUR ---
PT AMBULATED WITH HENRIQUE THEJAYESH FROM ROOM CV04 TO THE DOOR AND BACK. PT DID WELL. PT BACK IN BED. WILL GET OOB FOR LUNCH.
--- NOTE | 2019-01-14 11:00 | NUR ---
REASSESSMENT COMPLETED SEE FLOW SHEET.
--- NOTE | 2019-01-14 11:53 | NUR ---
PT ASSISTED OOB AND INTO HER BEDSIDE CHAIR. LUNCH TRAY ORDERED FOR HER.
--- NOTE | 2019-01-14 15:00 | NUR ---
SPOKE WITH DR LADD. HE IS AWARE OF CONSULT.
--- NOTE | 2019-01-14 15:34 | NUR ---
PRN PERCOCET GIVEN FOR PAIN. SEE MAR
--- NOTE | 2019-01-14 17:31 | NUR ---
PT EATING DINNER. VSS. CALL LIGHT IN REACH. WILL CONT POC.
--- NOTE | 2019-01-14 19:00 | NUR ---
REPORT RECEIVED FROM OFF GOING NURSE. PT REQUESTED HELP UP TO THE BEDSIDE COMMODE AND THEN BACK TO BED. PT STATED THAT ALL SHE WAS ABLE TO DO WAS PASS GAS. INITIAL ASSESSMENT COMPLETED, SEE FLOWSHEET FOR DETAILS. PT COMPLAINS OF BACK PAIN 10/07, PRN MEDICATION PROVIDED, SEE EMAR FOR DETAILS. PT DENIES FURTHER NEEDS AT THIS TIME. NO SIGNS OF ACUTE DISTRESS. WILL CONTINUE TO MONITOR.
--- NOTE | 2019-01-14 19:40 | NUR ---
OARL CARE DONE WITH PERIDEX
--- NOTE | 2019-01-14 21:00 | NUR ---
PT IS RESTING IN BED AT THIS TIME. PT DENIES NEEDS CURRENTLY. NO SIGNS OF ACUTE DISTRESS. WILL CONTINUE TO MONITOR.
--- NOTE | 2019-01-14 23:00 | NUR ---
REASSESSMENT COMPLETED, SEE FLOWSHEET FOR DETAILS. PT IS RESTING IN BED AT THIS TIME. PT COMPLAINS OF PAIN TO HER BACK AT A 8/10. PRN MEDICATIONS GIVEN, SEE EMAR FOR DETAILS. NO FURTHER NEEDS VOICED. NO SIGNS OF ACUTE DISTRESS. WILL CONTINUE TO MONITOR.
[2019-01-15] VITALS (24 sets, daily range): BP systolic 90–136; BP diastolic 45–89
--- NOTE | 2019-01-15 01:00 | NUR ---
PT IS RESTING IN BED WITH EYES CLOSED. NO NEEDS VOICED. NO SIGNS OF ACUTE DISTRESS. WILL CONTINUE TO MONITOR.
--- NOTE | 2019-01-15 03:00 | NUR ---
REASSESSMENT COMPLETED, SEE FLOWSHEET FOR DETAILS. PT IS SITTING UP IN BED AT THIS TIME C/O NAUSEA. PROVIDED PT WITH PRN MEDICATIONS FOR NAUSEA. PT REQUESTED HER PAIN MEDICATIONS ALSO, I RECCOMENDED SHE WAIT UNTIL SHE FELT LIKE SHE COULD KEEP A PILL DOWN. NO FURTHER NEEDS WERE NOTED AT THIS TIME. WILL CONTINUE TO MONITOR CLOSELY.
--- NOTE | 2019-01-15 05:00 | NUR ---
PT IS GIVING SELF A CHG BATH AT THIS TIME. COMPLETE LINEN CHANGE COMPLETED. REMOVED PT'S CRANDALL PER POLICY. PT TOLERATED WITH NO COMPLAINTS. NO FURTHER NEEDS NOTED. NO SIGNS OF ACUTE DISTRESS. WILL CONTINUE TO MONITOR.
[2019-01-15 06:13] LABS: BASOPHILS 0.2 % (0-2); EOSINOPHILS 3.2 % (0-7); HEMATOCRIT 26.9 % (36.0-48.0); HEMOGLOBIN 8.4 g/dL (12-16); IMMATURE GRANULOCYTES 0.1 % (0-5); LYMPHOCYTES 17.7 % (15-50); MCH 29.4 pg (26.0-34.0); MCHC 31.2 g/dL (31.0-37.0); MCV 94.1 fL (80.0-100.0); MEAN PLATELET VOLUME 9.5 fL (7.4-10.4); MONOCYTES 10.9 % (2-11); NEUTROPHILS 67.9 % (40-80); PLATELET COUNT 209 10x3/uL (130-400); RBC 2.86 10x6/uL (4.00-5.40); RDW 15.1 % (11.5-14.5)
[2019-01-15 06:23] LABS: WBC 9.6 10x3/uL (4.8-10.8)
[2019-01-15 06:42] LABS: ALBUMIN 2.6 g/dL (3.4-5.0); ALKALINE PHOSPHATASE 63 U/L (46-116); ALT (SGPT) 13 U/L (10-68); BILIRUBIN - TOTAL 0.41 mg/dL (0.2-1.3); CALC OSMOLALITY 276 mosm/kg (275-300); CALCIUM 8.2 mg/dL (8.5-10.1); CARBON DIOXIDE 30.8 mmol/L (21.0-32.0); CHLORIDE - SERUM 104 mmol/L (98-107); CREATININE - SERUM 0.5 mg/dL (0.6-1.3); GLUCOSE 105 mg/dL (74-106); POTASSIUM - SERUM 3.5 mmol/L (3.5-5.1); PROTEIN - SERUM 5.9 g/dL (6.4-8.2); SODIUM 140 mmol/L (136-145); UREA NITROGEN 6 mg/dL (7-18); eGFR NON AFRICAN AMERICAN > 90 mL/min (90-120)
--- NOTE | 2019-01-15 07:00 | NUR ---
AWAKES EASILY TO VERBAL STIMULI SKIN WARM AND DRY. UP IN CHAIR AT BEDSIDE. DENIES ANY PAIN. MONITOR SR. CENTRAL LINE IV IN RIJ DRESSING DRY AND INTACT. CHEST AND SUBSTERNAL DRESSING DRY AND INTACT. PACER WIRES SECURE TO SUBSTERNAL DRESSING. TRACY DRAIN WITH SERSANG DRAINAGE BULB COMPRESSED. NO DISTRESS. NAUSEA NOT TO BAD.
--- NOTE | 2019-01-15 07:45 | NUR ---
BREAKFAST SERVED ATE FEW BITES. TOELRATED WELL. PROTONIX GIVEN PO.
--- NOTE | 2019-01-15 08:45 | NUR ---
AMBULATED IN MALONEY PER PHYSICAL THERAPY TOLERATE FAIR. PAIN IMPROVED WITH PAIN MEDS. DENIES ANY NAUSEA. PULSE OX DOSE DROP TO 88 % WHEN OXYGEN OFF.
--- NOTE | 2019-01-15 10:01 | NUR ---
ENCOURAGE TO USE INCENTIVE SPIROMETRY. NAPPING AT INTERVALS NO DISTRESS
--- NOTE | 2019-01-15 11:28 | NUR ---
NO DISTRESS. DENIES NEED FOR PAIN MEDS. REMINDED TO CALL NURSE BEFORE SHE GETS UP. CALL LIGHT WITHIN HANDS REACH. TRACY COMPRESSED WITH SMALL AMOUNT SERSANG DRAINAGE. CHEST AND SUBSTERNAL DRESSING DRY AND INTACT. RIGHT LEG INCISIONS INTACT. NO REDNESS OR DRAINAGE
--- NOTE | 2019-01-15 12:30 | NUR ---
returned to bed tolerated well. stood and ambulated to bed with minimal assistances.
--- NOTE | 2019-01-15 13:00 | NUR ---
physical therapy here ambulated in bajwa. tolerated well
--- NOTE | 2019-01-15 13:28 | EC ---
PATIENT:DOMINGA CABAN DATE OF SERVICE: 01/09/19 SEX: F MEDICAL RECORD: [id number] DATE OF : [birth year] LOCATION:[place] [address] AGE OF PATIENT: 63 ADMISSION DATE: 01/09/19 REFERRING PHYSICIAN: INTERPRETING PHYSICIAN: SCARLETT PEÑA MD ECHOCARDIOGRAM REPORT ECHO CHARGES 4 ECHO COMPLETE Date: 01/12/19 CLINICAL DIAGNOSIS: CAD ECHOCARDIOGRAPHIC MEASUREMENTS (adult normal given) AC root (d.<3.7cm) 2.8 cm LV Septum d (<1.2 cm> 1.2 cm Valve Excursion 1.1 cm LV Septum (systole) 1.5 cm Left Atria (s.<4.0cm> 4.2 cm LVPW d(<1.2cm) 1.4 cm RV (d.<2.3cm) 3.1 cm LVPW (sytole) 1.5 cm LV diastole(<5.6CM) 4.5 cm MV E-F(>70mm/sec) cm LV systole 3.2 cm LVOT Diameter 2.0 cm MV exc.(>10mm) 1.2 cm Est.ejection fraction (50-75%) % DOPPLER: LVIT cm/sec A 81.0 cm/sec E 55.0 cm/sec LA 3.4 cm/sec RVSP 19 mmHg LVOT 104 cm/sec AOP1/2T m/s Asc. Ao 145 cm/sec RVOT 74 cm/sec RA cm/sec PA 101 cm/sec AV Gradient Peak 8.38 mmHg AV Mean 4.43 mmHg AV Area 2.3 cm MV Gradient Peak 4.37 mmHg MV Mean 1.60 mmHg MV Area cm COMMENTS: [facility] PATIENT Client Account Representative: 2 ARTIS RIVERS Environmental Change Analyst: 1 Dr. Peña TAPE# PACS Pericardial Effusion N DATE OF SERVICE: PROCEDURE: Transesophageal echo evaluation of valvular structures during bypass surgery. FINDINGS: 1. Left ventricular chamber size is within normal limits. Left ventricular systolic function is normal. Overall ejection fraction estimated at 55% to 60%. 2. Left atrium, right atrium, and right ventricular chamber sizes are within normal limits. ECHOCARDIOGRAM REPORT [id number] DOMINGA CABAN 3. Valvular structures have normal structure and motion. 4. Doppler interrogation reveals mild mitral regurgitation, no other valvular insufficiency or stenosis. 5. No evidence of pericardial effusion or left ventricular thrombus. TRANSINT:[id number] Voice Confirmation ID: [id number] DOCUMENT ID: [id number] SCARLETT PEÑA MD at 1328 CC: [id number] DICTATION DATE: 01/13/19 1204 PARTS ANALYST: 01/13/19 1212 ADM IN [facility] [address] [id number]
--- NOTE | 2019-01-15 13:29 | EC ---
PATIENT:DOMINGA CABAN DATE OF SERVICE: 01/09/19 SEX: F MEDICAL RECORD: [id number] DATE OF : [birth year] LOCATION:[place] [address] AGE OF PATIENT: 63 ADMISSION DATE: 01/09/19 REFERRING PHYSICIAN: INTERPRETING PHYSICIAN: SCARLETT PEÑA MD ECHOCARDIOGRAM REPORT ECHO CHARGES 5 ECHO LIMITED Date: 01/14/19 CLINICAL DIAGNOSIS: STEMI, POST RECENT CABG ECHOCARDIOGRAPHIC MEASUREMENTS (adult normal given) AC root (d.<3.7cm) 2.8 cm LV Septum d (<1.2 cm> 1.2 cm Valve Excursion 1.1 cm LV Septum (systole) 1.5 cm Left Atria (s.<4.0cm> 4.4 cm LVPW d(<1.2cm) 1.4 cm RV (d.<2.3cm) 3.6 cm LVPW (sytole) 1.5 cm LV diastole(<5.6CM) 4.5 cm MV E-F(>70mm/sec) cm LV systole 3.2 cm LVOT Diameter 2.0 cm MV exc.(>10mm) 1.2 cm Est.ejection fraction (50-75%) % DOPPLER: LVIT cm/sec A 81.0 cm/sec E 55.0 cm/sec LA 3.4 cm/sec RVSP 17 mmHg LVOT 104 cm/sec AOP1/2T m/s Asc. Ao 145 cm/sec RVOT 74 cm/sec RA cm/sec PA 101 cm/sec AV Gradient Peak 8.38 mmHg AV Mean 4.43 mmHg AV Area 2.3 cm MV Gradient Peak 4.37 mmHg MV Mean 1.60 mmHg MV Area cm COMMENTS: [facility] PATIENT Casing Blower: 2 ARTIS RIVERS Board Turner: 1 Dr. Peña TAPE# PACS Pericardial Effusion N DATE OF SERVICE: 01/14/2019 FINDINGS: 1. Left ventricular chamber size is within normal limits. Left ventricular systolic function is preserved at 50% to 55%. 2. Left atrium is enlarged at 4.6 cm. Right atrium and right ventricular chamber sizes are as well mildly dilated. 3. Valvular structures have normal structure and motion. 4. Doppler interrogation reveals mild mitral regurgitation, no other valvular insufficiency or stenosis. Pulmonary systolic pressure estimated at 17 mmHg. ECHOCARDIOGRAM REPORT [id number] DOMINGA CABAN 5. No evidence of pericardial effusion or left ventricular thrombus. TRANSINT:[id number] Voice Confirmation ID: [id number] DOCUMENT ID: [id number] SCARLETT PEÑA MD at 1329 CC: [id number] DICTATION DATE: 01/14/19 1119 HIDE PASTER: 01/14/19 1248 ADM IN [place] [id number] [place] [id number]
--- NOTE | 2019-01-15 14:00 | NUR ---
ambulated in bajwa per physical therapy. family here
--- NOTE | 2019-01-15 14:30 | NUR ---
Rimma here pull inez tube patient tolerated well. dressing dry and intact.
--- NOTE | 2019-01-15 14:30 | NUR ---
Rimma here pulled pacer wires and inez drain. patient tolerated poorly
--- NOTE | 2019-01-15 15:30 | NUR ---
ambulated to bathroom. voided. tolerated fair
--- NOTE | 2019-01-15 15:40 | NUR ---
up to bathroom, voided without difficulty. ambulating with minimal assistances in room. up in chair at bedside. at bedside
--- NOTE | 2019-01-15 16:13 | NUR ---
up in chair at bedside. family here to visit. update given
--- NOTE | 2019-01-15 16:45 | NUR ---
DINNER TRAY SERVED. NO DISTRESS. TALKING WITH HER SISTER
--- NOTE | 2019-01-15 18:30 | NUR ---
AMBULATED TO BATHROOM. VOIDED, STATES SHE IS PASSING ALOT OF GAS. RETURNED TO BED. REQUESTING PAIN PILL. AMBULATING IMPROVING. NO DISTRESS
--- NOTE | 2019-01-15 19:00 | NUR ---
SHIFT ASSESSMENT COMPLETE. PT IS A&O X4, PERRLA, 3 MM, BRISK REACTION TO LIGHT. GLASSES ARE ON. RR SHALLOW, NC ON @ 2L/MIN. CLEAR BREATH SOUNDS HEARD BILAT THROUGHOUT ALL LOBES. R IJ SALINE LOC'D, SWAB CAPS IN PLACE. S1S2 AUDIBLE, HR 86 BPM, NSR SHOWING ON THE MONITOR. MIDSTERNAL DRESSING CDI, SUBSTERNAL DRESSING CDI. ABD SOFT, FLAT, BS HYPOACTIVE X4. R LEG HARVEST SITES X2 WELL APPROXIMATED. MONTSERRAT AND SCDS ON AND FUNCTIONING. RADIAL AND PEDAL PULSES PALP. REPOSITIONED FOR COMFORT. NO NEEDS AT THIS TIME. WILL CONT TO MONITOR CLOSELY.
--- NOTE | 2019-01-15 20:30 | NUR ---
INCREASED O2 TO 4 L/MIN D/T DECREASED O2 SAT. PT'S O2 IS NOW 92-94% GOOD WAVE FORM. REPOSITIONED FOR COMFORT. WILL CONT TO MONITOR.
--- NOTE | 2019-01-15 20:48 | NUR ---
PT NAUSEATED. PRN ZOFRAN ADMIN.
--- NOTE | 2019-01-15 20:55 | NUR ---
CALLED PHARMACY FOR BACTROBAN OINTMENT.
--- NOTE | 2019-01-15 22:00 | NUR ---
OOB TO USE RESTROOM, GAIT STEADY. NO BM BUT GAS WAS PASSED, SHE STATES THAT SHE IS FEELING BETTER. BACK IN BED, CONNECTED TO CVICU MONITORS. IS USE X10, WEAK EFFORT, 200-500 ML INSPIRED. ENCOURAGED USE OF IS WITH GOOD EFFORT. WILL NO FURTHER CHANGES.
--- NOTE | 2019-01-15 23:00 | NUR ---
REASSESSMENT COMPLETE. NO CHANGES IN PT CONDITION. SEE FLOWSHEET FOR FURTHER DETAILS. V/S: HR 82 NSR SHOWING ON MONITOR, RR 13, O2 94%, BP 105/54 (71), TEMP 98.5. CALL LIGHT IN REACH, BED IN LOWEST POSITION. WILL CONT TO MONITOR.
[2019-01-16] VITALS (24 sets, daily range): BP systolic 99–141; BP diastolic 51–75; Ht 172.7 cm; Wt 61.4 kg
--- NOTE | 2019-01-16 | NUR ---
ASSISTED PT TO RESTROOM. GAIT STEADY. PT UNABLE TO HAVE A BM, GAS IS BEING PASSED. PT BACK IN BED. SHE STATES THAT SHE IS HAVING 5/10 INCISIONAL PAIN DESCRIBING IT A DULL ACHE. PRN PERCOCET ADMIN PER REQUEST. WILL CONT TO MONITOR CLOSELY.
--- NOTE | 2019-01-16 01:00 | NUR ---
PT RESTING PEACEFULLY WITH NO SIGNS OF ACUTE DISTRESS NOTED. VSS. WILL CONT WITH POC.
--- NOTE | 2019-01-16 03:00 | NUR ---
REASSESSMENT COMPLETE. ASSISTED PT TO RESTROOM. GAIT STEADY. CLEAR YELLOW VOID NOTED. PT REQUESTED TO SIT UP IN CHAIR. ASSISTED PT TO CHAIR, CONNECTED TO ALL CVICU MONITORS. NO FURTHER NEEDS AT THIS TIME. VSS. SEE FLOWSHEET FOR FURTHER DETAILS. WILL CONT WITH POC.
--- NOTE | 2019-01-16 05:00 | NUR ---
CHG BATH AND COMPLETE LINEN CHANGE PROVIDED. SUBSTERNAL DRESSING CHANGE PROVIDED PER ORDERS. PT TOLERATED WELL. ASSISTED WITH XFER TO CHAIR, GAIT STEADY. NO FURTHER NEEDS AT THIS TIME, CALL LIGHT IN REACH. REFRESHMENTS PROVIDED. WILL CONT WITH POC.
[2019-01-16 06:45] LABS: HEMATOCRIT 26.5 % (36.0-48.0); HEMOGLOBIN 8.3 g/dL (12-16); MCH 29.3 pg (26.0-34.0); MCHC 31.3 g/dL (31.0-37.0); MCV 93.6 fL (80.0-100.0); MEAN PLATELET VOLUME 9.4 fL (7.4-10.4); RBC 2.83 10x6/uL (4.00-5.40); WBC 10.1 10x3/uL (4.8-10.8)
[2019-01-16 07:00] LABS: ALBUMIN 2.6 g/dL (3.4-5.0); ALKALINE PHOSPHATASE 64 U/L (46-116); ALT (SGPT) 11 U/L (10-68); BILIRUBIN - TOTAL 0.41 mg/dL (0.2-1.3); CALC OSMOLALITY 273 mosm/kg (275-300); CALCIUM 8.3 mg/dL (8.5-10.1); CARBON DIOXIDE 28.8 mmol/L (21.0-32.0); CHLORIDE - SERUM 102 mmol/L (98-107); CREATININE - SERUM 0.5 mg/dL (0.6-1.3); GLUCOSE 95 mg/dL (74-106); POTASSIUM - SERUM 3.2 mmol/L (3.5-5.1); PROTEIN - SERUM 5.9 g/dL (6.4-8.2); SODIUM 138 mmol/L (136-145); UREA NITROGEN 6 mg/dL (7-18); eGFR NON AFRICAN AMERICAN > 90 mL/min (90-120)
--- NOTE | 2019-01-16 07:00 | NUR ---
AWAKE AND ALERT SKIN WARM AND DRY. UP IN CHAIR AT BEDSIDE. DENIES ANY PAIN. MID CHEST AND SUBSTERNAL DRESSING DRY AND INTACT. OXYGEN AT 4 LITERS NC RIJ CENTRAL LINE DRESSING DRY AND INTACT
--- NOTE | 2019-01-16 07:45 | NUR ---
BREAKFAST SERVED [facility]. NO DISTRESS
--- NOTE | 2019-01-16 08:30 | NUR ---
AMBULATED TO BATHROOM. PASSING GAS
--- NOTE | 2019-01-16 09:14 | NUR ---
PHYSICAL THERAPY HERE AMBULATED IN [facility]. TOLERATED WELL
--- NOTE | 2019-01-16 10:14 | NUR ---
DR. ASHLEY HERE, ORAL POTASSIUM ORDERED
--- NOTE | 2019-01-16 10:30 | NUR ---
RETURNED TO BED. RIJ CENTRAL LINE REMOVED. NO BLEEDING OR BRUISING AT SITE. DRESSING APPLIED PATIENT TOLERATED [facility]. PAIN PILL GIVEN PER PATIENT REQUEST
--- NOTE | 2019-01-16 12:03 | NUR ---
PATIENT SLEEPING EYES CLOSED NO DISTRESS.
--- NOTE | 2019-01-16 12:30 | NUR ---
DR. SCOTT HERE. NO NEW ORDERS. PATIENT AWAKE UP IN CHAIR AT BEDSIDE FOR LUNCH. WHEN SMELLED LUNCH SHE BECAME NAUSEA. ATTEMPTED 22 GAUGE IN RIGHT HAND WITHOUT SUCCESS. NAUSEA SOME BETTER
--- NOTE | 2019-01-16 13:59 | NUR ---
CHICKEN SOUP SERVED. FEELING BETTER
--- NOTE | 2019-01-16 14:50 | NUR ---
AMBULATED IN [facility] WITH PORTABLE OXYGEN 3 LITER PER NC. TOLERATED [facility]. DOES BECOME SHORT OF BREATH WHEN AMBULATING. RECOVERS [facility]
--- NOTE | 2019-01-16 15:57 | NUR ---
AMBULATED TO BATHROOM
--- NOTE | 2019-01-16 17:26 | NUR ---
AMBULATED TO BATHROOM. PATIENT DOES GET SHORT OF BREATH ON RETURN TO CHAIR
--- NOTE | 2019-01-16 18:08 | NUR ---
REFUSED DINNER TRAY. SITTING UP WATCHING TV. DRINKING APPLE JUICE
--- NOTE | 2019-01-16 19:00 | NUR ---
REPORT RECEIVED AT BEDSIDE, SHIFT ASSESSMENT COMPLETE PER FLOW SHEET, PT AWAKE AND ALERT SITTING UPA IN BEDSIDE CHAIR, RT IJ CVL REMOVED DURING DAY SHIFT, 2X2 GAUZE AND TEGADERM DRSG C/D/I, MIDSTERNAL AND SUBSTERNAL DRSG'S C/D/I, NSR ON CM, VSS, NC @ 2L/MIN, SCD AND MONTSERRAT DOSHIE ON BLE, PT AMBULATED TO BATHROOM WITH MINIMAL ASSIST, CLEAR YELLOW VOID NOTED, PT AMBULATED TO CHAIRE AND REPOSITIONES SELF FOR COMFORT, DENIES OTHER NEEDS AT THIS TIME WILL CONTINUE TO MONITOR
--- NOTE | 2019-01-16 19:30 | NUR ---
PT ASSISTED TO BATHROOM, CLEAR YELLOW VOID NOTED, PT STATES SHE HAS STARTED TO PASS GAS FREQUENTLY, PT AMBULATED TO CHAIR WITHOUT ASSIST, COMPLETE LINEN CHANGE AND YELLOW GOWN REPLACED
--- NOTE | 2019-01-16 22:00 | NUR ---
PT C/O NAUSEA ONLY, WITH INCREASED FLATULENCE AND BELCHING, 22g PIV PLACED IN RT HAND, PATENT WITH 10ML NS FLUSH, TEGADERM DRSG AND SITE C/D/I, PT TOLLERATED WITH NO S/S OF DISTRESS, PRN IV ZOFRAN GIVEN PER MAR/ORDERS, VSS, NSR ON CM, WILL CONTINUE TO MONITOR
--- NOTE | 2019-01-16 22:30 | NUR ---
PT ASSISTED TO BEDSIDE CHAIRE PER PT REQUEST, MINIMAL ASSIST NEEDED, PT POSITIONED SELF FOR COMFORT, LINES REPOSITIONED, VSS, PT DENIES OTHER NEEDS AT THIS TIME, WILL CONTINUE TO MONITOR
--- NOTE | 2019-01-16 22:45 | NUR ---
PT AMBULATED TO BATHROOM AND BACK TO BEDSIDE CHAIR WITH MINIMAL ASSIST, YELLOW CLEAR VOID NOTED IN TOILET, PT REPOSITIONED FOR COMFORT, VSS
--- NOTE | 2019-01-16 23:00 | NUR ---
REASSESSMENT COMPLETE SEE FLOW SHEET, NO ACUTE CHANGES FROM PRIOR ASSESSMENT, PT AWAKE AND ALERT, SITTING UP IN BEDSIDE CHAIR, PT ANXIOUS ABOUT NOT HAVING BM, PT PASSING GAS FREQUENTLY AND CAUSING ABDOMINAL DISCOMFORT, NSR ON CM, VSS, CALL LIGHT IN REACH, WILL CONTINUE TO MONITOR
[2019-01-17] VITALS (26 sets, daily range): BP systolic 101–138; BP diastolic 52–74
--- NOTE | 2019-01-17 00:10 | NUR ---
PT AMBULATED WITH RN TO BATHROOM, CLEAR YELLOW VOID NOTED, AMBULATED BACK TO CHAIR PER REQUEST, VSS, NO FURTHER NEEDS AT THIS TIME
--- NOTE | 2019-01-17 01:00 | NUR ---
PT AMBULATED BACK TO BED WITHOUT ASSIST, REPOSITIONED FOR COMFORT, HOB ELEVATED, SCD'S BLE, NSR ON CM, VSS, NC @ 2L/MIN, NO ACUTE S/S OF DISTRESS NOTED, FLUTTER AND I/S COMPLETED, 500-1000ML x10, CALL LIGHT IN REACH, BED ALARM ON, WILL CONTINUE TO MONITOR
--- NOTE | 2019-01-17 03:00 | NUR ---
REASSESSMENT COMPLETE SEE FLOW SHEET, NO ACUTE CHANGE FROM PRIOR ASSESSMENT, PT AAOx4, REPOSITIONS SELF IN BED FOR COMFORT, NSR ON CM, VSS, I/S AND TCDB COMPLETED, CALL LIGHT IN REACH, WILL CONTINUE TO MONITOR
--- NOTE | 2019-01-17 03:30 | NUR ---
PT OOB TO BATHROOM,VOID AND SMALL ROUNDED FIRM PELLET BM WITH SCANT RED BLOOD ON STOOL, PT AMBULATED BACK IN BED, VSS, NSR ON CM
--- NOTE | 2019-01-17 04:30 | NUR ---
PT OOB TO BATHROOM, LARGE AMOUNT OF FORMED DARK BROWN STOOL, NO BLOOD NOTED IN STOOL, PT AMBULATED BACK TO BED, VSS, WILL CONTINUE TO MONITOR
--- NOTE | 2019-01-17 05:30 | NUR ---
CHG BATH WITH COMPLETE LINEN CHANGE, GOWN REPLACED, SUBSTERNAL DRSG CHANGED PER ORDERS, PT TOLLERATED WELL WITH NO S/S OF DISTRESS, I&O'S AND DAILY WEIGHTS COLLECTED, PT ASSISTED TO BEDSIDE CHAIR, MONTSERRAT HAJI ON BLE, CALL LIGHT IN REACH, WILL CONTINUE TO MONITOR
[2019-01-17 06:18] LABS: HEMATOCRIT 28.7 % (36.0-48.0); MCH 29.1 pg (26.0-34.0); MCHC 31.4 g/dL (31.0-37.0); MCV 92.9 fL (80.0-100.0); MEAN PLATELET VOLUME 9.5 fL (7.4-10.4); RBC 3.09 10x6/uL (4.00-5.40); WBC 12.2 10x3/uL (4.8-10.8)
[2019-01-17 06:23] LABS: ALBUMIN 2.6 g/dL (3.4-5.0); ALKALINE PHOSPHATASE 66 U/L (46-116); ALT (SGPT) 14 U/L (10-68); BILIRUBIN - TOTAL 0.49 mg/dL (0.2-1.3); CALC OSMOLALITY 268 mosm/kg (275-300); CALCIUM 8.3 mg/dL (8.5-10.1); CARBON DIOXIDE 26.5 mmol/L (21.0-32.0); CHLORIDE - SERUM 101 mmol/L (98-107); CREATININE - SERUM 0.5 mg/dL (0.6-1.3); GLUCOSE 117 mg/dL (74-106); POTASSIUM - SERUM 3.5 mmol/L (3.5-5.1); PROTEIN - SERUM 6.1 g/dL (6.4-8.2); SODIUM 135 mmol/L (136-145); UREA NITROGEN 6 mg/dL (7-18); eGFR NON AFRICAN AMERICAN > 90 mL/min (90-120)
--- NOTE | 2019-01-17 07:30 | NUR ---
AWAKE AND ALERT SKIN WARM AND DRY. MID CHEST AND SUBSTERNAL DRESSING DRY AND INTACT.IV RIGHT HAND WITHOUT REDNESS OR SWELLING SALINE LOCKED. PATIENT DENIES AND NAUSEA. MINIMAL DISCOMFORT. UP IN CHAIR AT BEDSIDE. MONITOR SR. USING INCENTIVE SPIROMETRY TO 750 ML.
--- NOTE | 2019-01-17 08:59 | NUR ---
UP TO BATHROOM. PO MEDS TAKEN WITHOUT DIFFICULTY. UP IN CHAIR AT BEDSIDE
--- NOTE | 2019-01-17 11:00 | NUR ---
AMBULATED IN [facility] 500 FEET, MINIMAL SHORTNESSOF BREATH. DR. ASHLEY HERE
--- NOTE | 2019-01-17 11:30 | NUR ---
LUNCH TRAY SERVED [facility]
--- NOTE | 2019-01-17 12:00 | NUR ---
DR. LOPES HERE
--- NOTE | 2019-01-17 13:20 | NUR ---
UP TO BATHROOM. AMBULATING INDEPENDENTLY ASSISTANCES WITH LINES PROVIDED
--- NOTE | 2019-01-17 13:41 | NUR ---
AMBULATE 500 FEET IN [facility] TOLERATED WELL. LESS SHORT OF BREATH. TYLENOL GIVEN FOR HEADACHE
--- NOTE | 2019-01-17 15:00 | NUR ---
AMBULATED TO BED TO LAY DOWN. AFTER 15-20 MIN. COMPLIANTED OF FEELING SHORT OF BREATH OXYGEN APPLIED AND FAN TURNED ON IN ROOM. PATIENT AFTER A FEW MINUTES PATEINT STAES SHE STILL FEELS SHORT OF BREATH. PATIENT BACK UP IN CHAIR AT BEDSIDE. XANAX GIVEN. OXYGEN LEFT ON FOR COMFORT.
--- NOTE | 2019-01-17 16:00 | NUR ---
PATIENT EYES CLOSED RESP DEEP AND REGULAR NO DISTRESS
--- NOTE | 2019-01-17 17:01 | NUR ---
PATIENT AMBULATED TO BATHROOM. DENIES ANY SHORTNESS OF BREATH OXYGEN OFF. TOELRATED AMBULATING WELL. SUPER TRAY SERVED.
--- NOTE | 2019-01-17 18:23 | NUR ---
UP TO THE BATHROOM. VOIDED. STARTING TO COUGH UP AMATO SPUTUM. WANTS TO STAY UP IN CHAIR. REQUESTING HOT COFFEE.
[2019-01-18] VITALS (21 sets, daily range): BP systolic 89–155; BP diastolic 42–85
[2019-01-18 04:30] LABS: BASOPHILS 0.5 % (0-2); EOSINOPHILS 8.3 % (0-7); HEMATOCRIT 29.9 % (36.0-48.0); HEMOGLOBIN 9.4 g/dL (12-16); IMMATURE GRANULOCYTES 0.7 % (0-5); LYMPHOCYTES 23.7 % (15-50); MCH 29.3 pg (26.0-34.0); MCHC 31.4 g/dL (31.0-37.0); MCV 93.1 fL (80.0-100.0); MEAN PLATELET VOLUME 9.3 fL (7.4-10.4); MONOCYTES 9.4 % (2-11); NEUTROPHILS 57.4 % (40-80); PLATELET COUNT 347 10x3/uL (130-400); RBC 3.21 10x6/uL (4.00-5.40); RDW 15.4 % (11.5-14.5)
[2019-01-18 05:07] LABS: ALBUMIN 2.7 g/dL (3.4-5.0); ALKALINE PHOSPHATASE 72 U/L (46-116); ALT (SGPT) 11 U/L (10-68); BILIRUBIN - TOTAL 0.33 mg/dL (0.2-1.3); CALC OSMOLALITY 276 mosm/kg (275-300); CALCIUM 8.6 mg/dL (8.5-10.1); CARBON DIOXIDE 28.1 mmol/L (21.0-32.0); CHLORIDE - SERUM 103 mmol/L (98-107); CREATININE - SERUM 0.6 mg/dL (0.6-1.3); GLUCOSE 90 mg/dL (74-106); POTASSIUM - SERUM 3.8 mmol/L (3.5-5.1); PROTEIN - SERUM 6.5 g/dL (6.4-8.2); SODIUM 140 mmol/L (136-145); UREA NITROGEN 7 mg/dL (7-18); eGFR NON AFRICAN AMERICAN > 90 mL/min (90-120)
[2019-01-18 05:10] LABS: WBC 8.1 10x3/uL (4.8-10.8)
--- NOTE | 2019-01-18 05:30 | NUR ---
PT RESTING QUIETLY. SHE HAS BEEN OOB X 4 TO VOID. TOLERATES WELL. SHE IS STEADY ON HER FEET. SHE HAS REQUESTED ONE XANAX AND TWO PAIN TABLETS ON THIS SHIFT. REPORTS THAT THEY ARE EFFECTIVE.
--- NOTE | 2019-01-18 07:30 | NUR ---
REPORT RECEIVED. PT AWAKE, CONVERSANT. CALL LIGHT IN REACH.
--- NOTE | 2019-01-18 09:02 | NUR ---
MORNING MEDICATIONS HAVE BEEN GIVEN. PT HAS BEEN UP TO TOILET. STANDBY ASSIST. C/O PAIN IN HER NECK THAT STARTED OVERNIGHT. PAIN MEDICATION PROVIDED.
--- NOTE | 2019-01-18 09:44 | NUR ---
VISITOR AT BEDSIDE. PT VOICES NO NEEDS AT THIS TIME. CALL LIGHT IN REACH.
--- NOTE | 2019-01-18 09:53 | NUR ---
DR MEZA AT BEDSIDE AT THIS TIME.
--- NOTE | 2019-01-18 12:49 | NUR ---
REHAB PRESCREENING Rehab referral received and chart reviewed. This patient has [employer] as her insurance provider which requires prior authorization. PT noted observation of patient walking over 500 feet with nursing and has signed off on patient. This patient will not meet admission criteria for acute inpatient rehab. Thank you for this referral! Keeley Norwood, PRODUCT GRADER Rehab PD
--- NOTE | 2019-01-18 13:12 | NUR ---
PT ASSISTED UP TO TOILET. BM NOTED.
--- NOTE | 2019-01-18 13:17 | NUR ---
Nutrition Follow-up: POD 6 CABG. Pt reports improved appetite/PO intake. PO intake varies per record. Diet: Cardiac Wt: 146.6# (was 131# on 01/14) Last BM: 01/16 Labs reviewed Meds reviewed Continue current diet as tolerated. Encourage PO intake. RD following.
--- NOTE | 2019-01-18 15:20 | NUR ---
PT UP TO TOILET. WALKED FULL [place] BAND OF FLOOR, 500FT.
--- NOTE | 2019-01-18 18:40 | NUR ---
PT UP TO URINATE. C/O HURTING WHEN URINATING. FEELS LIKE SHE HAS A BLADDER INFECTION. DR MEZA NOTIFIED. NEW ORDER RECEIVED FOR UA TO BE COLLECTED.
--- NOTE | 2019-01-18 19:34 | NUR ---
REPORT CALLED TO SOTO. PT IS TRANSFERRING BY WHEELCHAIR TO RM [id number].
--- NOTE | 2019-01-18 20:00 | NUR ---
RECEIVED BEDSIDE REPORT. PATIENT TRANSFERED FROM CV ICU. PATIENT IS ALERT AND ORIENTED, RESPIRATIONS ARE EVEN AND UNLABORED. NO S/S OF DISTRESS. PATIENT ASKED AND RECEIVED PAIN MEDICATION. ALL OTHER NEEDS MET. CALL LIGHT WITHIN REACH. WILL CPOC.
[2019-01-18 21:26] LABS: APPEARANCE CLEAR (CLEAR); BILIRUBIN NEGATIVE (NEGATIVE); COLOR YELLOW (YELLOW); GLUCOSE NEGATIVE (NEGATIVE); KETONE NEGATIVE (NEGATIVE); NITRITE NEGATIVE (NEGATIVE); PROTEIN NEGATIVE (NEGATIVE); UROBILINOGEN NORMAL (NORMAL)
[2019-01-19] VITALS: BP 163/77
[2019-01-19 04:27] VITALS: BP 113/65
[2019-01-19 05:21] LABS: BASOPHILS 0.4 % (0-2); EOSINOPHILS 9.3 % (0-7); HEMOGLOBIN 8.9 g/dL (12-16); IMMATURE GRANULOCYTES 0.9 % (0-5); MCH 29.7 pg (26.0-34.0); MCHC 31.8 g/dL (31.0-37.0); MCV 93.3 fL (80.0-100.0); MONOCYTES 11.1 % (2-11); NEUTROPHILS 63.3 % (40-80); PLATELET COUNT 379 10x3/uL (130-400); RDW 15.6 % (11.5-14.5); WBC 8.5 10x3/uL (4.8-10.8)
[2019-01-19 05:53] LABS: ALBUMIN 2.5 g/dL (3.4-5.0); ALKALINE PHOSPHATASE 65 U/L (46-116); ALT (SGPT) 10 U/L (10-68); BILIRUBIN - TOTAL 0.28 mg/dL (0.2-1.3); CALC OSMOLALITY 265 mosm/kg (275-300); CALCIUM 8.6 mg/dL (8.5-10.1); CARBON DIOXIDE 26.7 mmol/L (21.0-32.0); CHLORIDE - SERUM 103 mmol/L (98-107); CREATININE - SERUM 0.6 mg/dL (0.6-1.3); GLUCOSE 96 mg/dL (74-106); POTASSIUM - SERUM 3.9 mmol/L (3.5-5.1); PROTEIN - SERUM 5.9 g/dL (6.4-8.2); SODIUM 134 mmol/L (136-145); UREA NITROGEN 7 mg/dL (7-18); eGFR NON AFRICAN AMERICAN > 90 mL/min (90-120)
--- NOTE | 2019-01-19 07:18 | NUR ---
REPORT RECEIVED. WILL CONTINUE WITH POC. PT CURRENTLY LYING SUPINE. CALL LIGHT W/I REACH. RR EVEN AND UNLABORED ON RA. R.AC PIV IS SALINE LOCKED. MIDSTERNAL DRESSING IN PLACE. NO S/S OF DISTRESS NOTED. PT DENIES ANY NEEDS. WILL CTM.
[2019-01-19 07:37] VITALS: BP 105/63
[2019-01-19 11:10] VITALS: BP 113/68
[2019-01-19] MEDS ORDERED: PLAVIX75 MG PO (12:44)
[2019-01-19] MEDS ORDERED: HEMOCYTE PLUS C1 CAP PO (12:45)
[2019-01-19] MEDS ORDERED: AMIODARONE HCL200 MG PO (12:46)
[2019-01-19] MEDS ORDERED: ASPIRIN EC81 M1 PO (12:46)
[2019-01-19] MEDS ORDERED: COLACE100 MG PO (12:46)
[2019-01-19] MEDS ORDERED: PROTONIX40 MG PO (12:47)
--- NOTE | 2019-01-19 13:55 | MORECARE ---
CASE MANAGEMENT DISCHARGE SUMMARY PATIENT: DOMINGA CABAN UNIT: [id number] ADM DATE: 01/09/19 AGE: 63 : 59 SEX: F ROOM/BED: D.9993 AUTHOR: EDI MUÑOZ PHYSICIAN: REFERRING PHYSICIAN: HASEEB MEZA MD DATE OF SERVICE: 01/19/19 Discharge Plan Patient Name: DOMINGA CABAN Facility: [facility]:[place] : 1955 Planned Disposition: Home Anticipated Discharge Date: 01/19/19 Discharge Date: Expected LOS: 10 Initial Reviewer: [email or web address] Initial Review Date: 01/11/2019 Generated: 01/19/19 2:55 pm Comments DCP- Discharge Planning Updated by [email or web address]: Greg Encinas on 01/19/19 12:[address] Patient Name: DOMINGA CABAN Encounter No: [id number] : 1955 Primary Insurance: [employer] MEDICARE ADV Anticipated DC Date: 01-19-2019 Planned Disposition: Home DCP follow-up note: CM RECEIVED DISCHARGE ORDER, MET WITH PT IN ROOM TO DISCUSS DISCHARGE NEEDS AND PLANNING. CM DISCUSSED AVAILABILITY OF HOME HEALTH, REHAB SERVICES AND MEDICAL EQUIPMENT. 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 FRIEND TO TRANSPORT HOME AT DISCHARGE. IMPORTANT MESSAGE FROM MEDICARE PROVIDED AND EXPLAINED. CARLEY Hernandez DCP- Discharge Planning Updated by [email or web address]: Mckenna Fulton on 01/11/19 4:[address] Patient Name: DOMINGA CABAN Admission Status: ER Accout number: [id number] Admission Date: 01-09-2019 : 1955 Admission Diagnosis: Attending: HASEEB MEZA Current LOS: 2 Anticipated DC Date: Planned Disposition: Home Health Service Primary Insurance: [employer] MEDICARE ADV Discharge Planning Comments: CM MET WITH PATIENT AFTER OBTAINING VERBAL CONSENT. STATES PLANS TO DISCHARGE TO HOME. DISCUSSED NEED FOR HH, REHAB OR EQUIPMENT. STATES IS HAVING A CABG TOMORROW AND WOULD BE INTERESTED IN HH AFTER DC. CHEMA SIGNED, STATES WANTS WHATEVER HH HER INSURANCE WILL ACCEPT. ALSO INTERESTED IN [facility] WHEELS. CM WILL FOLLOW AND ASSIST NEEDED. Cloth Handler: Mckenna Fulton DCPIA - Discharge Planning Initial Assessment Updated by [email or web address]: Mckenna Fulton on 01/11/19 5:10 pm * Is the patient Alert and Oriented? Yes * PCP VERSER * [facility] IN [place] * Preadmission Environment Home Alone * ADLs Independent * Other Equipment NONE * List name and contact numbers for known caregivers / representatives who currently or will assist patient after discharge: MELISSA DONG, FRIEND, * Additional services required to return to the preadmission environment? Yes * Can the patient safely return to the preadmission environment? No * Has this patient been hospitalized within the prior 30 days at any hospital? Yes Coverage Notice Reviewer: [id number] - Mckenna Fulton Notice Issued Date-Time: 01/11/2019 17:13 Notice Type: Patient Choice Letter Notice Delivered To: Patient Relationship to Patient: Sports Broadcaster Name: Delivery Method: HAND - Hand Delivered Nadiya Days: Prior Verbal Notification: Recipient Understood Notice: Yes Recipient Signature: Yes Med Rec Note Co-signed by Attending: Coverage Notice Comment: HH ANY Reviewer: [email or web address] Manjit Encinas Notice Issued Date-Time: 01/19/2019 13:45 Notice Type: IM Discharge Notice Notice Delivered To: Patient Relationship to Patient: Sports Broadcaster Name: Delivery Method: HAND - Hand Delivered Nadiya Days: Prior Verbal Notification: Recipient Understood Notice: Yes Recipient Signature: Yes Med Rec Note Co-signed by Attending: Coverage Notice Comment: Last DP export: 01/11/19 4:14 Patient Name: DOMINGA CABAN Page [id number] at 1355 All edits/amendments must be made on the electronic document DICTATION DATE: 01/19/19 1353 VP SALES: TRACY 01/19/19 1355 RPT#: [id number] DC DATE: STATUS: ADM IN [facility] [address] [place] [address] END OF REPORT
--- NOTE | 2019-01-19 14:09 | NUR ---
PATIENT IS POST CABG AND WILL WAIT AND SEE DR ASHLEY BEFORE GETTING FLU SHOT.
--- NOTE | 2019-01-19 15:10 | NUR ---
I have reviewed this patient and I concur with the Shift Assessment completed by the Licensed Practical Nurse today this shift.
--- NOTE | 2019-01-19 15:25 | NUR ---
PT DISCHARGED HOME VIA WHEELCHAIR WITH FAMILY. PIV REMOVED WITH CATHETER TIP FULLY INTACT. TELEMETRY REMOVED AND RETURNED. PT SIGNED PROPER DISCHARGE INSTRUCTIONS AND REMOVED ALL VALUABLES FROM THE ROOM.
== END 2019-01-19 15:27 | disposition home health service (06) | DRG 236 ==
LOC: D.ER 22:06 → D.CVICU 23:58 → D.M2 23:58 → D.CVICU 01-12 14:26 → D.M2 01-18 19:35
PROVIDERS: Emergency Medicine; Family Medicine; Thoracic Surgery (Cardiothoracic Vascular Surgery); ADMIT Internal Medicine Nephrology; ATTEND Internal Medicine Nephrology
PROC: 021109W Bypass Coronary Artery, Two Arteries from Aorta with Autologous Venous Tissue, Open Approach (ICD-10-PCS; 2019-01-12)
PROC: 06BP4ZZ Excision of Right Saphenous Vein, Percutaneous Endoscopic Approach (ICD-10-PCS; 2019-01-12)
PROC: 5A1221Z Performance of Cardiac Output, Continuous (ICD-10-PCS; 2019-01-12)
PROC: B24BZZ4 Ultrasonography of Heart with Aorta, Transesophageal (ICD-10-PCS; 2019-01-12)
PROC: 02100Z9 Bypass Coronary Artery, One Artery from Left Internal Mammary, Open Approach (ICD-10-PCS; principal; 2019-01-12 09:00)
DX: I25.110 Atherosclerotic heart disease of native coronary artery with unstable angina pectoris (principal); F17.213 Nicotine dependence, cigarettes, with withdrawal; N17.9 Acute kidney failure, unspecified; I24.9 Acute ischemic heart disease, unspecified; J93.9 Pneumothorax, unspecified; I10 Essential (primary) hypertension; F41.8 Other specified anxiety disorders; K21.9 Gastro-esophageal reflux disease without esophagitis; E78.5 Hyperlipidemia, unspecified; I65.23 Occlusion and stenosis of bilateral carotid arteries; J44.9 Chronic obstructive pulmonary disease, unspecified; Z86.73 Personal history of transient ischemic attack (TIA), and cerebral infarction without residual deficits; M19.90 Unspecified osteoarthritis, unspecified site; E83.42 Hypomagnesemia